=== PATIENT | male | born 1955 | race African-American/Black ===

== ENCOUNTER 2018-03-19 04:15 | Inpatient (IN) ==
[2018-03-19] MEDS ORDERED: ALBUTEROL/IPRATROPIUM 3 ML NEB RESP TX STA (04:52)
[2018-03-19] MEDS ORDERED: methylPREDNISolone SOD SUC 125 MG/2 ML VIAL IV STA (04:52)
[2018-03-19] MEDS: ALBUTEROL 2.5 MG/3 ML NEB RESP TX SCH ×3 (05:08→05:48)
[2018-03-19 05:22] LABS: Basophils # 0.1 10*3/uL (0.0-0.2); Basophils % 0.8 % (0.0-0.8); Eosinophils # 0.8 10*3/uL (0.0-0.87); Hematocrit 38.7 VOL% (42.0-52.0); Hemoglobin 12.3 GM/DL (14.0-18.0); Immature Granulocytes % 0.5 %; Immature Granulocytes Absolute 0.04 #; Lymphocytes # 1.1 10*3/uL (1.4-4.0); Lymphocytes % 13.9 % (21.2-54.2); Mean Corpuscular HGB Conc 31.8 GM/DL (32-36); Mean Corpuscular Hemoglobin 29 PG (27-34); Mean Corpuscular Volume 92.4 FL (87-102); Mean Platelet Volume 9.6 FL (9.6-12.0); Monocytes % 12.5 % (1.7-12.7); Neutrophils # 4.7 10*3/uL (1.4-7.4); Neutrophils % 61.3 % (38.7-73.9); Platelet Count 225 T/CUMM (130-400); Red Blood Count 4.19 MC/CUMM (3.8-5.5); Red Cell Distribution Width 16.3 % (9.3-17.3); White Blood Count 7.7 T/CUMM (4-12)
[2018-03-19 05:41] LABS: Albumin 3.1 G/DL (3.4-5.0); Bilirubin,Total 0.4 MG/DL (0.2-1.0); Calcium 9.3 MG/DL (8.5-10.1); Potassium 4.6 MMOL/L (3.5-5.1); Total Protein 9.2 G/DL (6.4-8.3)
[2018-03-19 05:43] LABS: Troponin I Only 0.083 NG/ML (0.00-0.045)
[2018-03-19 06:09] LABS: Band Neutrophils 1 % (0-10); Eosinophils 10 % (0-10); Lymphocytes 8 % (20-55); Platelet Estimate Normal; Segmented Neutrophils 69 % (50-85); Total Cells Counted 100
[2018-03-19] MEDS ORDERED: ONDANSETRON 4 MG/2 ML VIAL IV PRN (06:31)
[2018-03-19] MEDS ORDERED: amLODIPine 5 MG TABLET PO STA (06:38)
[2018-03-19 07:38] LABS: VLDL CHOLESTEROL 15.8 MG/DL
[2018-03-19 07:39] LABS: Risk Ratio 3.84
[2018-03-19] MEDS: ENOXAPARIN 40 MG/0.4 ML SYRINGE SUBCUT SCH (07:49)
[2018-03-19 08:23] LABS: Hepatitis C Virus Ab Quant 0.31 Index; Hepatitis C Virus Ab Result Negative (Negative)
[2018-03-19] MEDS: predniSONE 20 MG TABLET PO SCH (10:16)
[2018-03-19] MEDS: DOXYCYCLINE HYCLATE 100 MG CAPSULE PO SCH ×2 (10:16→22:13)
[2018-03-19] MEDS: PANTOPRAZOLE 40 MG TABLET PO SCH (10:17)
[2018-03-19] MEDS: guaiFENesin/DM ER 600-30 MG TABLET PO PRN (22:13)
[2018-03-19] MEDS: cloNIDine 0.1 MG TABLET PO SCH ×2 (22:29→22:30)
[2018-03-20 05:20] LABS: Basophils # 0.1 10*3/uL (0.0-0.2); Basophils % 0.4 % (0.0-0.8); Eosinophils # 0.1 10*3/uL (0.0-0.87); Eosinophils % 0.4 % (0.00-10.9); Hematocrit 36.5 VOL% (42.0-52.0); Hemoglobin 11.8 GM/DL (14.0-18.0); Immature Granulocytes % 0.6 %; Immature Granulocytes Absolute 0.08 #; Lymphocytes # 2.4 10*3/uL (1.4-4.0); Lymphocytes % 17.1 % (21.2-54.2); Mean Corpuscular HGB Conc 32.3 GM/DL (32-36); Mean Corpuscular Hemoglobin 30 PG (27-34); Mean Corpuscular Volume 91.5 FL (87-102); Mean Platelet Volume 9.2 FL (9.6-12.0); Monocytes # 1.7 10*3/uL (0.11-0.8); Monocytes % 11.7 % (1.7-12.7); Neutrophils # 9.9 10*3/uL (1.4-7.4); Neutrophils % 69.8 % (38.7-73.9); Platelet Count 223 T/CUMM (130-400); Red Blood Count 3.99 MC/CUMM (3.8-5.5); Red Cell Distribution Width 16.3 % (9.3-17.3); White Blood Count 14.1 T/CUMM (4-12)
[2018-03-20 05:34] LABS: Calcium 9.4 MG/DL (8.5-10.1); Osmolality,Calculated 277.4 MOS/KG (273-304); Potassium 4.2 MMOL/L (3.5-5.1)
[2018-03-20 05:39] LABS: Troponin I Only 0.039 NG/ML (0.00-0.045)
[2018-03-20 05:41] LABS: Eosinophils 1 % (0-10); Hypochromasia 1+; Lymphocytes 17 % (20-55); Ovalocytes Slight; Platelet Estimate Adequate; Segmented Neutrophils 74 % (50-85); Total Cells Counted 100
[2018-03-20] MEDS: ENOXAPARIN 40 MG/0.4 ML SYRINGE SUBCUT SCH (06:10)
[2018-03-20] MEDS: predniSONE 20 MG TABLET PO SCH (08:11)
[2018-03-20] MEDS: DOXYCYCLINE HYCLATE 100 MG CAPSULE PO SCH ×2 (08:11→20:20)
[2018-03-20] MEDS: PANTOPRAZOLE 40 MG TABLET PO SCH (08:11)
[2018-03-20] MEDS ORDERED: PROCHLORPERAZINE 10 MG TABLET PO PRN (10:35)
[2018-03-20] MEDS: amLODIPine 5 MG TABLET PO SCH ×2 (16:00→20:20)
[2018-03-20] MEDS: GABAPENTIN 100 MG CAPSULE PO SCH (18:12)
[2018-03-20] MEDS ORDERED: RANITIDINE 150 MG TABLET PO SCH (21:00)
[2018-03-20] MEDS: DOCUSATE SODIUM 100 MG CAPSULE PO SCH (22:34)
[2018-03-21] MEDS: ENOXAPARIN 40 MG/0.4 ML SYRINGE SUBCUT SCH (06:37)
[2018-03-21] MEDS ORDERED: LISINOPRIL 10 MG TABLET PO SCH ×2 (09:00→21:00)
[2018-03-21] MEDS: DOXYCYCLINE HYCLATE 100 MG CAPSULE PO SCH ×2 (09:36→21:24)
[2018-03-21] MEDS: PANTOPRAZOLE 40 MG TABLET PO SCH (09:36)
[2018-03-21] MEDS ORDERED: ALBUTEROL/IPRATROPIUM 3 ML NEB RESP TX STA (09:37)
[2018-03-21] MEDS: DOCUSATE SODIUM 100 MG CAPSULE PO SCH ×2 (09:37→21:24)
[2018-03-21] MEDS: amLODIPine 5 MG TABLET PO SCH ×2 (09:37→21:24)
[2018-03-21] MEDS: ALBUTEROL/IPRATROPIUM 3 ML NEB RESP TX SCH ×2 (14:27→19:30)
[2018-03-21] MEDS: hydroCHLOROthiazide 12.5 MG CAPSULE PO SCH (18:54)
[2018-03-21] MEDS: THEOPHYLLINE ER (24 HR) 300 MG CAPSULE PO SCH (19:14)
[2018-03-21] MEDS: GABAPENTIN 100 MG CAPSULE PO SCH (19:17)
[2018-03-21] MEDS: ALBUTEROL 2 MG TABLET PO SCH (21:24)
[2018-03-21] MEDS: LISINOPRIL 10 MG TABLET PO SCH (21:24)
[2018-03-21] MEDS: MONTELUKAST 10 MG TABLET PO SCH (21:24)
[2018-03-22] MEDS: ALBUTEROL/IPRATROPIUM 3 ML NEB RESP TX SCH ×2 (00:35→07:00)
[2018-03-22] MEDS: ALBUTEROL 2 MG TABLET PO SCH (06:33)
[2018-03-22] MEDS: ENOXAPARIN 40 MG/0.4 ML SYRINGE SUBCUT SCH (06:33)
[2018-03-22] MEDS: MONTELUKAST 10 MG TABLET PO SCH (09:56)
[2018-03-22] MEDS: guaiFENesin/DM ER 600-30 MG TABLET PO PRN (09:56)
[2018-03-22] MEDS: PANTOPRAZOLE 40 MG TABLET PO SCH (09:56)
[2018-03-22] MEDS: THEOPHYLLINE ER (24 HR) 300 MG CAPSULE PO SCH (09:56)
[2018-03-22] MEDS: hydroCHLOROthiazide 12.5 MG CAPSULE PO SCH (09:56)
[2018-03-22] MEDS: LISINOPRIL 10 MG TABLET PO SCH (09:57)
[2018-03-22] MEDS: DOCUSATE SODIUM 100 MG CAPSULE PO SCH (09:57)
[2018-03-22] MEDS: amLODIPine 5 MG TABLET PO SCH (09:57)
[2018-03-22] MEDS: DOXYCYCLINE HYCLATE 100 MG CAPSULE PO SCH (09:57)
[2018-03-22 12:22] VITALS: BP 115/90
[2018-03-24] MEDS ORDERED: THEOPHYLLINE ER (24 HR) 200 MG CAPSULE PO SCH (09:00)
== END 2018-03-22 12:33 | disposition home or self-care (01) | DRG 136 ==
LOC: SUATTDRO → N.ED 04:15 → N.EDINP 06:08 → N.4E 08:45
PROVIDERS: ADMIT Internal Medicine; ATTEND Internal Medicine

== ENCOUNTER 2018-06-30 07:29 | Inpatient (IN) ==
[2018-06-30] MEDS ORDERED: methylPREDNISolone SOD SUC 125 MG/2 ML VIAL IV STA (08:22)
[2018-06-30] MEDS ORDERED: ALBUTEROL/IPRATROPIUM 3 ML NEB RESP TX STA (08:22)
[2018-06-30] MEDS ORDERED: cefTRIAXone 1,000 MG in SODIUM CHLORIDE 0.9% 100 ML IV STA (08:22)
[2018-06-30 09:38] LABS: Albumin 2.9 G/DL (3.4-5.0); Bilirubin,Total 1.2 MG/DL (0.2-1.0); Calcium 9.1 MG/DL (8.5-10.1); Osmolality,Calculated 262.5 MOS/KG (273-304); Potassium 3.3 MMOL/L (3.5-5.1); Total Protein 8.6 G/DL (6.4-8.3)
[2018-06-30 11:54] LABS: Basophils % 0.2 % (0.0-0.8); Hematocrit 39.7 VOL% (42.0-52.0); Hemoglobin 13.1 GM/DL (14.0-18.0); Immature Granulocytes % 1.3 %; Immature Granulocytes Absolute 0.25 #; Lymphocytes # 0.6 10*3/uL (1.4-4.0); Lymphocytes % 3.3 % (21.2-54.2); Mean Corpuscular Hemoglobin 28 PG (27-34); Mean Corpuscular Volume 83.9 FL (87-102); Mean Platelet Volume 9.2 FL (9.6-12.0); Monocytes # 0.4 10*3/uL (0.11-0.8); Monocytes % 2.1 % (1.7-12.7); Neutrophils # 17.4 10*3/uL (1.4-7.4); Neutrophils % 93.1 % (38.7-73.9); Platelet Count 207 T/CUMM (130-400); Red Blood Count 4.73 MC/CUMM (3.8-5.5); Red Cell Distribution Width 17.6 % (9.3-17.3); White Blood Count 18.7 T/CUMM (4-12)
[2018-06-30 12:31] LABS: Band Neutrophils 2 % (0-10); Hypochromasia 1+; Lymphocytes 4 % (20-55); Microcytosis 1+; Platelet Estimate Normal; Segmented Neutrophils 88 % (50-85); Total Cells Counted 100
[2018-06-30] MEDS: ALBUTEROL/IPRATROPIUM 3 ML NEB RESP TX SCH (19:03)
[2018-06-30] MEDS: MONTELUKAST 10 MG TABLET PO SCH (20:52)
[2018-06-30] MEDS: guaiFENesin/DM ER 600-30 MG TABLET PO SCH (20:52)
[2018-06-30] MEDS ORDERED: methylPREDNISolone SOD SUC 40 MG/1 ML VIAL IV SCH (21:00)
[2018-07-01] MEDS: ALBUTEROL/IPRATROPIUM 3 ML NEB RESP TX SCH ×4 (00:50→18:56)
[2018-07-01 02:55] LABS: Basophils % 0.2 % (0.0-0.8); Hematocrit 40.8 VOL% (42.0-52.0); Hemoglobin 13.4 GM/DL (14.0-18.0); Immature Granulocytes % 0.8 %; Immature Granulocytes Absolute 0.19 #; Lymphocytes # 1.2 10*3/uL (1.4-4.0); Lymphocytes % 4.7 % (21.2-54.2); Mean Corpuscular HGB Conc 32.8 GM/DL (32-36); Mean Corpuscular Hemoglobin 27 PG (27-34); Mean Corpuscular Volume 82.9 FL (87-102); Mean Platelet Volume 9.9 FL (9.6-12.0); Monocytes # 1.2 10*3/uL (0.11-0.8); Monocytes % 4.8 % (1.7-12.7); Neutrophils # 22.6 10*3/uL (1.4-7.4); Neutrophils % 89.5 % (38.7-73.9); Platelet Count 237 T/CUMM (130-400); Red Blood Count 4.92 MC/CUMM (3.8-5.5); Red Cell Distribution Width 17.7 % (9.3-17.3); White Blood Count 25.2 T/CUMM (4-12)
[2018-07-01 03:14] LABS: Calcium 9.1 MG/DL (8.5-10.1); Osmolality,Calculated 269.4 MOS/KG (273-304); Potassium 3.7 MMOL/L (3.5-5.1)
[2018-07-01 03:29] LABS: Band Neutrophils 16 % (0-10); Total Cells Counted 100
[2018-07-01 03:30] LABS: Lymphocytes 3 % (20-55); Metamyelocytes 3 %; Platelet Estimate Normal; Segmented Neutrophils 74 % (50-85)
[2018-07-01] MEDS: ACETAMINOPHEN 325 MG TABLET PO PRN ×2 (06:00→20:33)
[2018-07-01] MEDS ORDERED: ALBUTEROL/IPRATROPIUM 3 ML NEB RESP TX PRN (07:20)
[2018-07-01] MEDS ORDERED: guaiFENesin/DM ER 600-30 MG TABLET PO PRN (07:20)
[2018-07-01] MEDS ORDERED: ALBUTEROL 2.5 MG/3 ML NEB RESP TX PRN (07:20)
[2018-07-01] MEDS: PANTOPRAZOLE 40 MG TABLET PO SCH (08:49)
[2018-07-01] MEDS: hydroCHLOROthiazide 12.5 MG CAPSULE PO SCH (08:49)
[2018-07-01] MEDS: LISINOPRIL 10 MG TABLET PO SCH ×2 (08:49→20:32)
[2018-07-01] MEDS: FAMOTIDINE 20 MG TABLET PO SCH (08:49)
[2018-07-01] MEDS: guaiFENesin/DM ER 600-30 MG TABLET PO SCH ×2 (08:49→20:32)
[2018-07-01] MEDS: MEROPENEM 1,000 MG in SODIUM CHLORIDE 0.9% 100 ML IV SCH ×2 (08:50→15:32)
[2018-07-01] MEDS ORDERED: cefTRIAXone 2,000 MG in SYRINGE 1 EACH IV SCH (09:00)
[2018-07-01] MEDS ORDERED: cefTRIAXone 1,000 MG in SYRINGE 1 EACH IV SCH (09:00)
[2018-07-01] MEDS: MELOXICAM 7.5 MG TABLET PO SCH (20:32)
[2018-07-01] MEDS: MONTELUKAST 10 MG TABLET PO SCH (20:33)
[2018-07-01] MEDS: GABAPENTIN 100 MG CAPSULE PO SCH (20:33)
[2018-07-02] MEDS: MEROPENEM 1,000 MG in SODIUM CHLORIDE 0.9% 100 ML IV SCH ×3 (00:10→18:41)
[2018-07-02] MEDS: ALBUTEROL/IPRATROPIUM 3 ML NEB RESP TX SCH ×3 (00:30→18:45)
[2018-07-02 05:12] LABS: Basophils # 0.1 10*3/uL (0.0-0.2); Basophils % 0.4 % (0.0-0.8); Hematocrit 39.7 VOL% (42.0-52.0); Hemoglobin 12.3 GM/DL (14.0-18.0); Immature Granulocytes % 5.3 %; Immature Granulocytes Absolute 1.44 #; Lymphocytes # 1.2 10*3/uL (1.4-4.0); Lymphocytes % 4.6 % (21.2-54.2); Mean Corpuscular Hemoglobin 27 PG (27-34); Mean Corpuscular Volume 86.9 FL (87-102); Mean Platelet Volume 10.9 FL (9.6-12.0); Monocytes # 1.6 10*3/uL (0.11-0.8); Monocytes % 5.8 % (1.7-12.7); Neutrophils # 22.7 10*3/uL (1.4-7.4); Neutrophils % 83.9 % (38.7-73.9); Platelet Count 210 T/CUMM (130-400); Red Blood Count 4.57 MC/CUMM (3.8-5.5); Red Cell Distribution Width 18.4 % (9.3-17.3); White Blood Count 27.1 T/CUMM (4-12)
[2018-07-02 05:39] LABS: Albumin 2.2 G/DL (3.4-5.0); Bilirubin,Total 0.8 MG/DL (0.2-1.0); Calcium 8.8 MG/DL (8.5-10.1); Osmolality,Calculated 268.4 MOS/KG (273-304); Potassium 3.4 MMOL/L (3.5-5.1); Total Protein 7.7 G/DL (6.4-8.3)
[2018-07-02 06:10] LABS: Band Neutrophils 1 % (0-10); Hypochromasia 1+; Lymphocytes 4 % (20-55); Platelet Estimate Adequate; Segmented Neutrophils 89 % (50-85); Total Cells Counted 100
[2018-07-02 06:11] LABS: Microcytosis 1+
[2018-07-02] MEDS: guaiFENesin/DM ER 600-30 MG TABLET PO SCH ×2 (09:03→21:23)
[2018-07-02] MEDS: LISINOPRIL 10 MG TABLET PO SCH ×2 (09:03→21:58)
[2018-07-02] MEDS: FAMOTIDINE 20 MG TABLET PO SCH (09:03)
[2018-07-02] MEDS: hydroCHLOROthiazide 12.5 MG CAPSULE PO SCH (09:03)
[2018-07-02] MEDS: PANTOPRAZOLE 40 MG TABLET PO SCH (09:03)
[2018-07-02] MEDS: VANCOMYCIN INJ 1,250 MG in SODIUM CHLORIDE 0.9% 250 ML IV SCH (12:51)
[2018-07-02] MEDS: GABAPENTIN 100 MG CAPSULE PO SCH (18:41)
[2018-07-02] MEDS: MONTELUKAST 10 MG TABLET PO SCH (21:23)
[2018-07-02] MEDS: MELOXICAM 7.5 MG TABLET PO SCH (21:23)
[2018-07-03] MEDS: ALBUTEROL/IPRATROPIUM 3 ML NEB RESP TX SCH ×4 (01:25→20:28)
[2018-07-03] MEDS: VANCOMYCIN INJ 1,250 MG in SODIUM CHLORIDE 0.9% 250 ML IV SCH (01:33)
[2018-07-03 05:04] LABS: Basophils # 0.1 10*3/uL (0.0-0.2); Basophils % 0.3 % (0.0-0.8); Eosinophils # 0.1 10*3/uL (0.0-0.87); Eosinophils % 0.3 % (0.00-10.9); Hematocrit 35.8 VOL% (42.0-52.0); Hemoglobin 11.5 GM/DL (14.0-18.0); Immature Granulocytes % 0.9 %; Lymphocytes # 1.3 10*3/uL (1.4-4.0); Lymphocytes % 5.5 % (21.2-54.2); Mean Corpuscular HGB Conc 32.1 GM/DL (32-36); Mean Corpuscular Hemoglobin 27 PG (27-34); Mean Corpuscular Volume 83.3 FL (87-102); Mean Platelet Volume 9.7 FL (9.6-12.0); Monocytes # 1.3 10*3/uL (0.11-0.8); Monocytes % 5.6 % (1.7-12.7); Neutrophils % 87.4 % (38.7-73.9); Platelet Count 241 T/CUMM (130-400); Red Cell Distribution Width 17.9 % (9.3-17.3); White Blood Count 22.9 T/CUMM (4-12)
[2018-07-03] MEDS: MEROPENEM 1,000 MG in SODIUM CHLORIDE 0.9% 100 ML IV SCH (05:31)
[2018-07-03 05:36] LABS: Albumin 2.2 G/DL (3.4-5.0); Bilirubin,Total 0.9 MG/DL (0.2-1.0); Calcium 8.6 MG/DL (8.5-10.1); Osmolality,Calculated 264.5 MOS/KG (273-304); Potassium 3.2 MMOL/L (3.5-5.1); Total Protein 7.3 G/DL (6.4-8.3)
[2018-07-03 05:46] LABS: Band Neutrophils 6 % (0-10); Eosinophils 1 % (0-10); Lymphocytes 5 % (20-55); Platelet Estimate Normal; Segmented Neutrophils 84 % (50-85); Total Cells Counted 100
[2018-07-03 05:47] LABS: Hypochromasia Slight; Ovalocytes 1+
[2018-07-03] MEDS: LISINOPRIL 10 MG TABLET PO SCH ×2 (08:59→20:39)
[2018-07-03] MEDS: FAMOTIDINE 20 MG TABLET PO SCH (08:59)
[2018-07-03] MEDS: guaiFENesin/DM ER 600-30 MG TABLET PO SCH ×2 (08:59→20:39)
[2018-07-03] MEDS: PANTOPRAZOLE 40 MG TABLET PO SCH (09:00)
[2018-07-03] MEDS: hydroCHLOROthiazide 12.5 MG CAPSULE PO SCH (09:00)
[2018-07-03] MEDS: GABAPENTIN 100 MG CAPSULE PO SCH (18:45)
[2018-07-03] MEDS: MELOXICAM 7.5 MG TABLET PO SCH (20:40)
[2018-07-03] MEDS: MONTELUKAST 10 MG TABLET PO SCH (20:40)
[2018-07-04] MEDS: ALBUTEROL/IPRATROPIUM 3 ML NEB RESP TX SCH ×2 (01:53→06:40)
[2018-07-04 04:59] LABS: Basophils # 0.1 10*3/uL (0.0-0.2); Basophils % 0.5 % (0.0-0.8); Eosinophils # 0.2 10*3/uL (0.0-0.87); Eosinophils % 1.4 % (0.00-10.9); Hematocrit 35.1 VOL% (42.0-52.0); Hemoglobin 11.5 GM/DL (14.0-18.0); Immature Granulocytes % 1.4 %; Immature Granulocytes Absolute 0.19 #; Lymphocytes # 1.4 10*3/uL (1.4-4.0); Mean Corpuscular HGB Conc 32.8 GM/DL (32-36); Mean Corpuscular Hemoglobin 27 PG (27-34); Mean Corpuscular Volume 83.6 FL (87-102); Mean Platelet Volume 10.7 FL (9.6-12.0); Monocytes # 0.9 10*3/uL (0.11-0.8); Monocytes % 6.7 % (1.7-12.7); Neutrophils # 10.4 10*3/uL (1.4-7.4); Platelet Count 192 T/CUMM (130-400); Red Cell Distribution Width 17.8 % (9.3-17.3); White Blood Count 13.1 T/CUMM (4-12)
[2018-07-04 05:17] LABS: Bilirubin,Total 0.8 MG/DL (0.2-1.0); Calcium 8.5 MG/DL (8.5-10.1); Osmolality,Calculated 266.2 MOS/KG (273-304); Total Protein 7.2 G/DL (6.4-8.3)
[2018-07-04 07:06] LABS: Band Neutrophils 16 % (0-10); Eosinophils 2 % (0-10); Lymphocytes 7 % (20-55); Platelet Estimate Normal; Segmented Neutrophils 66 % (50-85); Total Cells Counted 100
[2018-07-04 07:07] LABS: Anisocytosis Slight
[2018-07-04] MEDS ORDERED: POTASSIUM CHLORIDE 20 MEQ TABLET PO ONE ×2 (07:41→14:00)
[2018-07-04] MEDS ORDERED: LEVOFLOXACIN 750 MG TABLET PO SCH (09:00)
[2018-07-04] MEDS: hydroCHLOROthiazide 12.5 MG CAPSULE PO SCH (09:32)
[2018-07-04] MEDS: FAMOTIDINE 20 MG TABLET PO SCH (09:32)
[2018-07-04] MEDS: PANTOPRAZOLE 40 MG TABLET PO SCH (09:33)
[2018-07-04] MEDS: guaiFENesin/DM ER 600-30 MG TABLET PO SCH (09:33)
[2018-07-04] MEDS: LISINOPRIL 10 MG TABLET PO SCH (09:33)
[2018-07-04 11:47] VITALS: BP 112/82
[2018-07-05 13:51] LABS: Mitochondrial Antibody (M2) <0.1 U
== END 2018-07-04 14:04 | disposition home or self-care (01) | DRG 139 ==
LOC: N.ED 07:29 → N.EDINP 13:42 → SUATTDRO 13:42 → N.5E 14:10 → N.4E 14:20
PROVIDERS: ADMIT Hospitalist; ATTEND Internal Medicine

== ENCOUNTER 2022-03-29 10:33 | Inpatient (IN) ==
[2022-03-29 11:15] LABS: Basophils % 0.4 % (0.0-0.8); Eosinophils % 0.4 % (0.00-10.9); Hematocrit 44.9 VOL% (42.0-52.0); Hemoglobin 14.7 GM/DL (14.0-18.0); Immature Granulocytes % 0.4 %; Immature Granulocytes Absolute 0.03 #; Lymphocytes # 1.9 10*3/uL (1.4-4.0); Lymphocytes % 24.1 % (21.2-54.2); Mean Corpuscular HGB Conc 32.7 GM/DL (32-36); Mean Corpuscular Volume 94.3 FL (87-102); Mean Platelet Volume 9.3 FL (9.6-12.0); Monocytes # 0.6 10*3/uL (0.11-0.8); Monocytes % 7.7 % (1.7-12.7); Platelet Count 219 T/CUMM (130-400); Red Blood Count 4.76 MC/CUMM (3.8-5.5); Red Cell Distribution Width 15.5 % (9.3-17.3); White Blood Count 7.8 T/CUMM (4-12)
[2022-03-29] MEDS ORDERED: DEXAMETHASONE 10 MG/1 ML VIAL ONE (11:31)
[2022-03-29 11:35] LABS: Bilirubin,Total 0.9 MG/DL (0.20-1.00); Calcium 9.4 MG/DL (8.5-10.1); Osmolality,Calculated 274.5 MOS/KG (273-304); Potassium 3.1 MMOL/L (3.5-5.1); Total Protein 7.9 G/DL (6.4-8.2)
[2022-03-29] MEDS ORDERED: DEXAMETHASONE INJ 20 MG in SODIUM CHLORIDE 0.9% 50 ML IV ONE (11:39)
[2022-03-29] MEDS ORDERED: POTASSIUM CHLORIDE 20 MEQ TABLET PO ONE (12:08)
[2022-03-29] MEDS ORDERED: ONDANSETRON 4 MG/2 ML VIAL IV PRN (13:00)
[2022-03-29] MEDS ORDERED: GLUCAGON 1 MG VIAL IM PRN (13:00)
[2022-03-29] MEDS ORDERED: DEXTROSE 10% 250 ML BAG IV PRN (13:08)
[2022-03-29] MEDS ORDERED: NON-FORMULARY MEDICATION (Albuterol Sulfate [Proair Hfa] 90 MCG/PUFF HFA aerosol inhaler) INH PRN (14:04)
[2022-03-29] MEDS ORDERED: ALBUTEROL 1.25 MG/3 ML NEB RESP TX PRN (14:04)
[2022-03-29] MEDS ORDERED: PHENYLEPHRINE 0.5% NASAL SPRAY 15 ML BOTTLE BOTH NARES PRN (14:18)
[2022-03-29] MEDS: GABAPENTIN 100 MG CAPSULE PO SCH ×2 (17:09→20:33)
[2022-03-29] MEDS: DEXAMETHASONE INJ 40 MG in SODIUM CHLORIDE 0.9% 50 ML IV SCH (17:46)
[2022-03-29] MEDS: ENOXAPARIN 30 MG/0.3 ML SYRINGE SUBCUT SCH (20:32)
[2022-03-29] MEDS: MELOXICAM 7.5 MG TABLET PO SCH (20:33)
[2022-03-29] MEDS: BUDESONIDE/FORMOTEROL 80-4.5 INHALER 6.9 GM INH SCH (20:33)
[2022-03-29] MEDS ORDERED: MAGNESIUM CITRATE 300 ML BOTTLE PO PRN (21:53)
[2022-03-30 05:54] LABS: Basophils % 0.1 % (0.0-0.8); Hematocrit 43.1 VOL% (42.0-52.0); Immature Granulocytes % 0.4 %; Immature Granulocytes Absolute 0.03 #; Lymphocytes # 1.1 10*3/uL (1.4-4.0); Lymphocytes % 14.3 % (21.2-54.2); Mean Corpuscular HGB Conc 32.5 GM/DL (32-36); Mean Corpuscular Volume 94.9 FL (87-102); Mean Platelet Volume 9.3 FL (9.6-12.0); Monocytes # 0.2 10*3/uL (0.11-0.8); Monocytes % 2.2 % (1.7-12.7); Platelet Count 201 T/CUMM (130-400); Red Blood Count 4.54 MC/CUMM (3.8-5.5); Red Cell Distribution Width 15.1 % (9.3-17.3); White Blood Count 7.9 T/CUMM (4-12)
[2022-03-30 06:13] LABS: Albumin 2.6 G/DL (3.4-5.0); Bilirubin,Total 0.6 MG/DL (0.20-1.00); Calcium 8.7 MG/DL (8.5-10.1); Osmolality,Calculated 277.5 MOS/KG (273-304); Potassium 3.8 MMOL/L (3.5-5.1); Total Protein 7.7 G/DL (6.4-8.2)
[2022-03-30] MEDS: IPRATROPIUM 500 MCG/2.5 ML NEB RESP TX SCH ×4 (07:19→19:15)
[2022-03-30] MEDS: DEXAMETHASONE INJ 40 MG in SODIUM CHLORIDE 0.9% 50 ML IV SCH (10:15)
[2022-03-30] MEDS: BUDESONIDE/FORMOTEROL 80-4.5 INHALER 6.9 GM INH SCH ×2 (10:15→21:42)
[2022-03-30] MEDS: GABAPENTIN 100 MG CAPSULE PO SCH ×3 (10:18→21:42)
[2022-03-30] MEDS: amLODIPine 10 MG TABLET PO SCH (10:19)
[2022-03-30] MEDS: MULTIVITAMIN (CENTRUM) TABLET PO SCH (10:19)
[2022-03-30] MEDS: ENOXAPARIN 30 MG/0.3 ML SYRINGE SUBCUT SCH (21:42)
[2022-03-30] MEDS: MELOXICAM 7.5 MG TABLET PO SCH (21:42)
[2022-03-31] MEDS: IPRATROPIUM 500 MCG/2.5 ML NEB RESP TX SCH ×4 (07:28→19:26)
[2022-03-31] MEDS: PANTOPRAZOLE 40 MG TABLET PO SCH (09:45)
[2022-03-31] MEDS: GABAPENTIN 100 MG CAPSULE PO SCH ×3 (09:45→21:33)
[2022-03-31] MEDS: MULTIVITAMIN (CENTRUM) TABLET PO SCH (09:45)
[2022-03-31] MEDS: amLODIPine 10 MG TABLET PO SCH (09:45)
[2022-03-31] MEDS: BUDESONIDE/FORMOTEROL 80-4.5 INHALER 6.9 GM INH SCH ×2 (09:46→21:33)
[2022-03-31] MEDS: DEXAMETHASONE INJ 40 MG in SODIUM CHLORIDE 0.9% 50 ML IV SCH (09:46)
[2022-03-31] MEDS: MELOXICAM 7.5 MG TABLET PO SCH (21:32)
[2022-03-31] MEDS: ENOXAPARIN 30 MG/0.3 ML SYRINGE SUBCUT SCH (21:33)
[2022-04-01 05:59] LABS: Basophils % 0.1 % (0.0-0.8); Hemoglobin 14.3 GM/DL (14.0-18.0); Immature Granulocytes % 0.9 %; Immature Granulocytes Absolute 0.12 #; Lymphocytes # 0.8 10*3/uL (1.4-4.0); Lymphocytes % 6.6 % (21.2-54.2); Mean Corpuscular HGB Conc 32.5 GM/DL (32-36); Mean Corpuscular Volume 95.4 FL (87-102); Mean Platelet Volume 9.2 FL (9.6-12.0); Monocytes # 0.8 10*3/uL (0.11-0.8); Monocytes % 5.9 % (1.7-12.7); Neutrophils % 86.5 % (38.7-73.9); Platelet Count 219 T/CUMM (130-400); Red Blood Count 4.61 MC/CUMM (3.8-5.5); Red Cell Distribution Width 15.7 % (9.3-17.3); White Blood Count 12.8 T/CUMM (4-12)
[2022-04-01 06:04] LABS: Calcium 8.3 MG/DL (8.5-10.1); Osmolality,Calculated 282.3 MOS/KG (273-304); Potassium 3.4 MMOL/L (3.5-5.1)
[2022-04-01] MEDS: IPRATROPIUM 500 MCG/2.5 ML NEB RESP TX SCH ×4 (07:21→19:55)
[2022-04-01] MEDS: GABAPENTIN 100 MG CAPSULE PO SCH ×3 (10:11→21:05)
[2022-04-01] MEDS: MULTIVITAMIN (CENTRUM) TABLET PO SCH (10:11)
[2022-04-01] MEDS: DEXAMETHASONE INJ 40 MG in SODIUM CHLORIDE 0.9% 50 ML IV SCH (10:11)
[2022-04-01] MEDS: PANTOPRAZOLE 40 MG TABLET PO SCH (10:12)
[2022-04-01] MEDS: amLODIPine 10 MG TABLET PO SCH (10:12)
[2022-04-01] MEDS: BUDESONIDE/FORMOTEROL 80-4.5 INHALER 6.9 GM INH SCH ×2 (10:12→21:05)
[2022-04-01] MEDS ORDERED: POTASSIUM CHLORIDE 20 MEQ TABLET PO ONE (11:09)
[2022-04-01] MEDS: MELOXICAM 7.5 MG TABLET PO SCH (21:05)
[2022-04-01] MEDS: ENOXAPARIN 30 MG/0.3 ML SYRINGE SUBCUT SCH (21:05)
[2022-04-02 07:48] LABS: Basophils % 0.1 % (0.0-0.8); Hematocrit 43.6 VOL% (42.0-52.0); Hemoglobin 14.1 GM/DL (14.0-18.0); Immature Granulocytes Absolute 0.14 #; Lymphocytes # 1.6 10*3/uL (1.4-4.0); Lymphocytes % 11.6 % (21.2-54.2); Mean Corpuscular HGB Conc 32.3 GM/DL (32-36); Mean Corpuscular Volume 96.2 FL (87-102); Mean Platelet Volume 9.2 FL (9.6-12.0); Monocytes # 1.2 10*3/uL (0.11-0.8); Monocytes % 8.9 % (1.7-12.7); Neutrophils % 78.4 % (38.7-73.9); Platelet Count 207 T/CUMM (130-400); Red Blood Count 4.53 MC/CUMM (3.8-5.5); Red Cell Distribution Width 15.9 % (9.3-17.3); White Blood Count 13.8 T/CUMM (4-12)
[2022-04-02] MEDS: IPRATROPIUM 500 MCG/2.5 ML NEB RESP TX SCH ×4 (08:11→19:17)
[2022-04-02 08:13] LABS: Calcium 8.3 MG/DL (8.5-10.1); Osmolality,Calculated 277.4 MOS/KG (273-304); Potassium 4.6 MMOL/L (3.5-5.1)
[2022-04-02] MEDS: PANTOPRAZOLE 40 MG TABLET PO SCH (09:26)
[2022-04-02] MEDS: MULTIVITAMIN (CENTRUM) TABLET PO SCH (09:26)
[2022-04-02] MEDS: amLODIPine 10 MG TABLET PO SCH (09:26)
[2022-04-02] MEDS: DEXAMETHASONE INJ 40 MG in SODIUM CHLORIDE 0.9% 50 ML IV SCH (09:26)
[2022-04-02] MEDS: GABAPENTIN 100 MG CAPSULE PO SCH ×3 (09:26→21:32)
[2022-04-02] MEDS: BUDESONIDE/FORMOTEROL 80-4.5 INHALER 6.9 GM INH SCH ×2 (09:27→21:34)
[2022-04-02] MEDS ORDERED: POLYETHYLENE GLYCOL POWDER 17 GM PACK PO PRN (09:52)
[2022-04-02] MEDS: DOCUSATE SODIUM 100 MG CAPSULE PO SCH ×2 (10:09→21:32)
[2022-04-02] MEDS: MELOXICAM 7.5 MG TABLET PO SCH (21:32)
[2022-04-02] MEDS: ENOXAPARIN 30 MG/0.3 ML SYRINGE SUBCUT SCH (21:32)
[2022-04-03] MEDS: amLODIPine 10 MG TABLET PO SCH ×2 (03:47→09:45)
[2022-04-03] MEDS: IPRATROPIUM 500 MCG/2.5 ML NEB RESP TX SCH ×4 (07:00→19:20)
[2022-04-03 07:43] LABS: Basophils % 0.2 % (0.0-0.8); Hemoglobin 14.4 GM/DL (14.0-18.0); Immature Granulocytes % 1.3 %; Immature Granulocytes Absolute 0.17 #; Lymphocytes # 1.4 10*3/uL (1.4-4.0); Mean Corpuscular Volume 95.9 FL (87-102); Monocytes # 1.1 10*3/uL (0.11-0.8); Monocytes % 8.5 % (1.7-12.7); Platelet Count 217 T/CUMM (130-400); Red Blood Count 4.69 MC/CUMM (3.8-5.5); Red Cell Distribution Width 15.8 % (9.3-17.3); White Blood Count 12.8 T/CUMM (4-12)
[2022-04-03 08:04] LABS: Calcium 8.4 MG/DL (8.5-10.1); Osmolality,Calculated 274.7 MOS/KG (273-304); Potassium 4.6 MMOL/L (3.5-5.1)
[2022-04-03] MEDS: MULTIVITAMIN (CENTRUM) TABLET PO SCH (09:44)
[2022-04-03] MEDS: DOCUSATE SODIUM 100 MG CAPSULE PO SCH ×2 (09:44→21:04)
[2022-04-03] MEDS: PANTOPRAZOLE 40 MG TABLET PO SCH (09:45)
[2022-04-03] MEDS: GABAPENTIN 100 MG CAPSULE PO SCH ×3 (09:45→21:04)
[2022-04-03] MEDS: BUDESONIDE/FORMOTEROL 80-4.5 INHALER 6.9 GM INH SCH ×2 (09:47→21:06)
[2022-04-03] MEDS: DEXAMETHASONE INJ 40 MG in SODIUM CHLORIDE 0.9% 50 ML IV SCH (09:48)
[2022-04-03] MEDS ORDERED: LACTULOSE 20 GM/30 ML UDCUP PO ONE (10:32)
[2022-04-03] MEDS: MELOXICAM 7.5 MG TABLET PO SCH (21:04)
[2022-04-03] MEDS: hydrALAZINE 25 MG TABLET PO SCH (21:04)
[2022-04-03] MEDS: ENOXAPARIN 30 MG/0.3 ML SYRINGE SUBCUT SCH (21:05)
[2022-04-04 06:53] LABS: Basophils % 0.3 % (0.0-0.8); Hematocrit 44.2 VOL% (42.0-52.0); Hemoglobin 14.3 GM/DL (14.0-18.0); Immature Granulocytes % 2.3 %; Immature Granulocytes Absolute 0.28 #; Lymphocytes # 1.2 10*3/uL (1.4-4.0); Lymphocytes % 10.3 % (21.2-54.2); Mean Corpuscular HGB Conc 32.4 GM/DL (32-36); Mean Corpuscular Volume 95.9 FL (87-102); Monocytes # 1.2 10*3/uL (0.11-0.8); Monocytes % 10.3 % (1.7-12.7); NRBC # 0.02 10*3/uL; Neutrophils % 76.8 % (38.7-73.9); Platelet Count 229 T/CUMM (130-400); Red Blood Count 4.61 MC/CUMM (3.8-5.5); Red Cell Distribution Width 15.9 % (9.3-17.3)
[2022-04-04] MEDS: IPRATROPIUM 500 MCG/2.5 ML NEB RESP TX SCH ×4 (07:06→20:00)
[2022-04-04 07:10] LABS: Calcium 8.7 MG/DL (8.5-10.1); Potassium 4.1 MMOL/L (3.5-5.1)
[2022-04-04] MEDS: DOCUSATE SODIUM 100 MG CAPSULE PO SCH ×2 (10:53→21:49)
[2022-04-04] MEDS: MULTIVITAMIN (CENTRUM) TABLET PO SCH (10:53)
[2022-04-04] MEDS: amLODIPine 10 MG TABLET PO SCH (10:53)
[2022-04-04] MEDS: GABAPENTIN 100 MG CAPSULE PO SCH ×3 (10:54→21:49)
[2022-04-04] MEDS: hydrALAZINE 25 MG TABLET PO SCH ×2 (10:54→21:49)
[2022-04-04] MEDS: PANTOPRAZOLE 40 MG TABLET PO SCH (10:54)
[2022-04-04] MEDS: DEXAMETHASONE INJ 40 MG in SODIUM CHLORIDE 0.9% 50 ML IV SCH (10:55)
[2022-04-04] MEDS: BUDESONIDE/FORMOTEROL 80-4.5 INHALER 6.9 GM INH SCH ×2 (10:58→21:55)
[2022-04-04] MEDS: MELOXICAM 7.5 MG TABLET PO SCH (21:49)
[2022-04-04] MEDS: ENOXAPARIN 30 MG/0.3 ML SYRINGE SUBCUT SCH (21:50)
[2022-04-05] MEDS: IPRATROPIUM 500 MCG/2.5 ML NEB RESP TX SCH ×4 (07:14→19:35)
[2022-04-05] MEDS: GABAPENTIN 100 MG CAPSULE PO SCH ×3 (09:33→22:08)
[2022-04-05] MEDS: amLODIPine 10 MG TABLET PO SCH (09:33)
[2022-04-05] MEDS: hydrALAZINE 25 MG TABLET PO SCH ×2 (09:33→22:08)
[2022-04-05] MEDS: DOCUSATE SODIUM 100 MG CAPSULE PO SCH ×2 (09:33→22:08)
[2022-04-05] MEDS: MULTIVITAMIN (CENTRUM) TABLET PO SCH (09:33)
[2022-04-05] MEDS: PANTOPRAZOLE 40 MG TABLET PO SCH (09:33)
[2022-04-05] MEDS: BUDESONIDE/FORMOTEROL 80-4.5 INHALER 6.9 GM INH SCH ×2 (09:34→22:09)
[2022-04-05] MEDS: MELOXICAM 7.5 MG TABLET PO SCH (22:08)
[2022-04-05] MEDS: ENOXAPARIN 30 MG/0.3 ML SYRINGE SUBCUT SCH (22:08)
[2022-04-06] MEDS: IPRATROPIUM 500 MCG/2.5 ML NEB RESP TX SCH ×4 (07:21→19:21)
[2022-04-06] MEDS: DOCUSATE SODIUM 100 MG CAPSULE PO SCH ×2 (10:17→20:43)
[2022-04-06] MEDS: hydrALAZINE 25 MG TABLET PO SCH ×2 (10:17→20:44)
[2022-04-06] MEDS: GABAPENTIN 100 MG CAPSULE PO SCH ×3 (10:17→20:43)
[2022-04-06] MEDS: POLYETHYLENE GLYCOL POWDER 17 GM PACK PO SCH (10:17)
[2022-04-06] MEDS: amLODIPine 10 MG TABLET PO SCH (10:17)
[2022-04-06] MEDS: MULTIVITAMIN (CENTRUM) TABLET PO SCH (10:17)
[2022-04-06] MEDS: BUDESONIDE/FORMOTEROL 80-4.5 INHALER 6.9 GM INH SCH ×2 (10:18→20:44)
[2022-04-06] MEDS: PANTOPRAZOLE 40 MG TABLET PO SCH (10:18)
[2022-04-06] MEDS: MELOXICAM 7.5 MG TABLET PO SCH (20:43)
[2022-04-06] MEDS: ENOXAPARIN 30 MG/0.3 ML SYRINGE SUBCUT SCH (20:44)
[2022-04-07] MEDS: IPRATROPIUM 500 MCG/2.5 ML NEB RESP TX SCH ×4 (07:33→19:39)
[2022-04-07] MEDS: ENOXAPARIN 40 MG/0.4 ML SYRINGE SUBCUT SCH (08:08)
[2022-04-07] MEDS: DOCUSATE SODIUM 100 MG CAPSULE PO SCH ×2 (08:08→20:15)
[2022-04-07] MEDS: MULTIVITAMIN (CENTRUM) TABLET PO SCH (08:08)
[2022-04-07] MEDS: GABAPENTIN 100 MG CAPSULE PO SCH ×3 (08:08→20:15)
[2022-04-07] MEDS: POLYETHYLENE GLYCOL POWDER 17 GM PACK PO SCH (08:08)
[2022-04-07] MEDS: hydrALAZINE 25 MG TABLET PO SCH ×2 (08:09→20:15)
[2022-04-07] MEDS: amLODIPine 10 MG TABLET PO SCH (08:09)
[2022-04-07] MEDS: PANTOPRAZOLE 40 MG TABLET PO SCH (08:09)
[2022-04-07] MEDS: BUDESONIDE/FORMOTEROL 80-4.5 INHALER 6.9 GM INH SCH ×2 (08:10→20:16)
[2022-04-07] MEDS: MELOXICAM 7.5 MG TABLET PO SCH (20:15)
[2022-04-08 03:37] LABS: Basophils % 0.2 % (0.0-0.8); Eosinophils # 0.2 10*3/uL (0.0-0.87); Eosinophils % 1.8 % (0.00-10.9); Hematocrit 41.5 VOL% (42.0-52.0); Hemoglobin 13.6 GM/DL (14.0-18.0); Immature Granulocytes % 1.4 %; Immature Granulocytes Absolute 0.15 #; Lymphocytes # 2.4 10*3/uL (1.4-4.0); Lymphocytes % 21.8 % (21.2-54.2); Mean Corpuscular HGB Conc 32.8 GM/DL (32-36); Mean Corpuscular Volume 95.8 FL (87-102); Mean Platelet Volume 8.6 FL (9.6-12.0); Monocytes # 0.9 10*3/uL (0.11-0.8); Monocytes % 7.8 % (1.7-12.7); Platelet Count 218 T/CUMM (130-400); Red Blood Count 4.33 MC/CUMM (3.8-5.5); Red Cell Distribution Width 15.9 % (9.3-17.3); White Blood Count 10.9 T/CUMM (4-12)
[2022-04-08 06:14] LABS: Calcium 8.7 MG/DL (8.5-10.1); Osmolality,Calculated 279.4 MOS/KG (273-304); Potassium 4.2 MMOL/L (3.5-5.1)
[2022-04-08] MEDS: IPRATROPIUM 500 MCG/2.5 ML NEB RESP TX SCH ×3 (07:30→19:50)
[2022-04-08] MEDS: PANTOPRAZOLE 40 MG TABLET PO SCH (09:45)
[2022-04-08] MEDS: MULTIVITAMIN (CENTRUM) TABLET PO SCH (09:45)
[2022-04-08] MEDS: amLODIPine 10 MG TABLET PO SCH (09:46)
[2022-04-08] MEDS: hydrALAZINE 25 MG TABLET PO SCH ×2 (09:46→21:18)
[2022-04-08] MEDS: GABAPENTIN 100 MG CAPSULE PO SCH ×3 (09:46→21:18)
[2022-04-08] MEDS: BUDESONIDE/FORMOTEROL 80-4.5 INHALER 6.9 GM INH SCH ×2 (09:46→21:18)
[2022-04-08] MEDS: POLYETHYLENE GLYCOL POWDER 17 GM PACK PO SCH (09:46)
[2022-04-08] MEDS: DOCUSATE SODIUM 100 MG CAPSULE PO SCH ×2 (09:46→21:18)
[2022-04-08] MEDS: ENOXAPARIN 40 MG/0.4 ML SYRINGE SUBCUT SCH (09:46)
[2022-04-08] MEDS: MELOXICAM 7.5 MG TABLET PO SCH (21:18)
[2022-04-09 05:01] LABS: Basophils % 0.2 % (0.0-0.8); Eosinophils # 0.2 10*3/uL (0.0-0.87); Eosinophils % 2.2 % (0.00-10.9); Hematocrit 40.8 VOL% (42.0-52.0); Hemoglobin 13.1 GM/DL (14.0-18.0); Immature Granulocytes % 1.5 %; Immature Granulocytes Absolute 0.16 #; Lymphocytes # 2.4 10*3/uL (1.4-4.0); Lymphocytes % 23.1 % (21.2-54.2); Mean Corpuscular HGB Conc 32.1 GM/DL (32-36); Mean Corpuscular Volume 96.9 FL (87-102); Mean Platelet Volume 8.7 FL (9.6-12.0); Monocytes # 0.9 10*3/uL (0.11-0.8); Platelet Count 226 T/CUMM (130-400); Red Blood Count 4.21 MC/CUMM (3.8-5.5); Red Cell Distribution Width 15.9 % (9.3-17.3); White Blood Count 10.4 T/CUMM (4-12)
[2022-04-09 05:11] LABS: Calcium 8.6 MG/DL (8.5-10.1); Osmolality,Calculated 281.3 MOS/KG (273-304); Potassium 3.9 MMOL/L (3.5-5.1)
[2022-04-09] MEDS: IPRATROPIUM 500 MCG/2.5 ML NEB RESP TX SCH ×5 (07:05→19:14)
[2022-04-09] MEDS: POLYETHYLENE GLYCOL POWDER 17 GM PACK PO SCH (08:54)
[2022-04-09] MEDS: DOCUSATE SODIUM 100 MG CAPSULE PO SCH ×2 (08:55→21:48)
[2022-04-09] MEDS: amLODIPine 10 MG TABLET PO SCH (08:56)
[2022-04-09] MEDS: GABAPENTIN 100 MG CAPSULE PO SCH ×3 (08:56→21:48)
[2022-04-09] MEDS: hydrALAZINE 25 MG TABLET PO SCH ×2 (08:56→21:48)
[2022-04-09] MEDS: PANTOPRAZOLE 40 MG TABLET PO SCH (08:56)
[2022-04-09] MEDS: ENOXAPARIN 40 MG/0.4 ML SYRINGE SUBCUT SCH (08:57)
[2022-04-09] MEDS: MULTIVITAMIN (CENTRUM) TABLET PO SCH (08:57)
[2022-04-09] MEDS: BUDESONIDE/FORMOTEROL 80-4.5 INHALER 6.9 GM INH SCH ×2 (08:59→21:48)
[2022-04-09] MEDS: MELOXICAM 7.5 MG TABLET PO SCH (21:48)
[2022-04-10] MEDS: ACETAMINOPHEN 325 MG TABLET PO PRN ×2 (02:31→15:49)
[2022-04-10 04:46] LABS: Basophils % 0.2 % (0.0-0.8); Eosinophils # 0.2 10*3/uL (0.0-0.87); Hematocrit 42.3 VOL% (42.0-52.0); Hemoglobin 13.6 GM/DL (14.0-18.0); Immature Granulocytes Absolute 0.11 #; Lymphocytes # 1.6 10*3/uL (1.4-4.0); Lymphocytes % 14.5 % (21.2-54.2); Mean Corpuscular HGB Conc 32.2 GM/DL (32-36); Mean Corpuscular Volume 97.2 FL (87-102); Mean Platelet Volume 8.8 FL (9.6-12.0); Monocytes % 8.4 % (1.7-12.7); Neutrophils % 73.9 % (38.7-73.9); Platelet Count 230 T/CUMM (130-400); Red Blood Count 4.35 MC/CUMM (3.8-5.5); Red Cell Distribution Width 15.9 % (9.3-17.3); White Blood Count 11.3 T/CUMM (4-12)
[2022-04-10 05:07] LABS: Calcium 8.9 MG/DL (8.5-10.1); Osmolality,Calculated 273.7 MOS/KG (273-304); Potassium 3.9 MMOL/L (3.5-5.1)
[2022-04-10] MEDS: IPRATROPIUM 500 MCG/2.5 ML NEB RESP TX SCH ×4 (07:33→19:43)
[2022-04-10] MEDS: POLYETHYLENE GLYCOL POWDER 17 GM PACK PO SCH (09:48)
[2022-04-10] MEDS: DOCUSATE SODIUM 100 MG CAPSULE PO SCH ×2 (09:48→21:48)
[2022-04-10] MEDS: MULTIVITAMIN (CENTRUM) TABLET PO SCH (09:48)
[2022-04-10] MEDS: hydrALAZINE 25 MG TABLET PO SCH ×2 (09:49→21:48)
[2022-04-10] MEDS: amLODIPine 10 MG TABLET PO SCH (09:49)
[2022-04-10] MEDS: GABAPENTIN 100 MG CAPSULE PO SCH ×3 (09:49→21:48)
[2022-04-10] MEDS: PANTOPRAZOLE 40 MG TABLET PO SCH (09:49)
[2022-04-10] MEDS: ENOXAPARIN 40 MG/0.4 ML SYRINGE SUBCUT SCH (09:50)
[2022-04-10] MEDS: SPIRIVA INH SCH (09:52)
[2022-04-10] MEDS: BUDESONIDE/FORMOTEROL 80-4.5 INHALER 6.9 GM INH SCH ×2 (09:53→21:48)
[2022-04-10] MEDS: MELOXICAM 7.5 MG TABLET PO SCH (21:48)
[2022-04-11] MEDS: IPRATROPIUM 500 MCG/2.5 ML NEB RESP TX SCH ×4 (07:03→19:50)
[2022-04-11] MEDS: PANTOPRAZOLE 40 MG TABLET PO SCH (08:44)
[2022-04-11] MEDS: hydrALAZINE 25 MG TABLET PO SCH ×2 (08:44→22:16)
[2022-04-11] MEDS: POLYETHYLENE GLYCOL POWDER 17 GM PACK PO SCH (08:44)
[2022-04-11] MEDS: ENOXAPARIN 40 MG/0.4 ML SYRINGE SUBCUT SCH (08:45)
[2022-04-11] MEDS: amLODIPine 10 MG TABLET PO SCH (08:45)
[2022-04-11] MEDS: MULTIVITAMIN (CENTRUM) TABLET PO SCH (08:45)
[2022-04-11] MEDS: GABAPENTIN 100 MG CAPSULE PO SCH ×3 (08:45→22:15)
[2022-04-11] MEDS: DOCUSATE SODIUM 100 MG CAPSULE PO SCH ×2 (08:45→22:20)
[2022-04-11] MEDS: SPIRIVA INH SCH (08:47)
[2022-04-11] MEDS: BUDESONIDE/FORMOTEROL 80-4.5 INHALER 6.9 GM INH SCH ×2 (08:47→22:20)
[2022-04-11] MEDS: ACETAMINOPHEN 325 MG TABLET PO PRN ×2 (08:49→22:16)
[2022-04-11] MEDS: MELOXICAM 7.5 MG TABLET PO SCH (22:25)
[2022-04-12 04:42] LABS: Basophils % 0.4 % (0.0-0.8); Eosinophils # 0.2 10*3/uL (0.0-0.87); Hematocrit 41.7 VOL% (42.0-52.0); Hemoglobin 13.4 GM/DL (14.0-18.0); Immature Granulocytes % 0.7 %; Immature Granulocytes Absolute 0.06 #; Lymphocytes # 1.6 10*3/uL (1.4-4.0); Mean Corpuscular HGB Conc 32.1 GM/DL (32-36); Mean Corpuscular Volume 97.2 FL (87-102); Mean Platelet Volume 8.8 FL (9.6-12.0); Monocytes # 0.9 10*3/uL (0.11-0.8); Monocytes % 10.4 % (1.7-12.7); Neutrophils % 68.5 % (38.7-73.9); Platelet Count 231 T/CUMM (130-400); Red Blood Count 4.29 MC/CUMM (3.8-5.5); Red Cell Distribution Width 15.9 % (9.3-17.3); White Blood Count 8.9 T/CUMM (4-12)
[2022-04-12 05:03] LABS: Alanine Aminotransferase 39 U/L (16-61); Albumin 2.7 G/DL (3.4-5.0); Alkaline Phosphatase 67 U/L (45-117); Aspartate Amino Transferase 18 U/L (0-37); Bilirubin,Total < 0.39 MG/DL (0.20-1.00); Blood Urea Nitrogen 14 MG/DL (7-18); Calcium 9.3 MG/DL (8.5-10.1); Carbon Dioxide 27 MMOL/L (21-32); Chloride 105 MMOL/L (98-107); Glucose 88 MG/DL (74-106); Osmolality,Calculated 274.7 MOS/KG (273-304); Potassium 4.1 MMOL/L (3.5-5.1); Sodium 138 MMOL/L (136-145); Total Protein 6.9 G/DL (6.4-8.2)
[2022-04-12] MEDS: IPRATROPIUM 500 MCG/2.5 ML NEB RESP TX SCH ×4 (07:00→19:27)
[2022-04-12] MEDS: amLODIPine 10 MG TABLET PO SCH (09:47)
[2022-04-12] MEDS: MULTIVITAMIN (CENTRUM) TABLET PO SCH (09:47)
[2022-04-12] MEDS: GABAPENTIN 100 MG CAPSULE PO SCH ×3 (09:47→20:00)
[2022-04-12] MEDS: PANTOPRAZOLE 40 MG TABLET PO SCH (09:47)
[2022-04-12] MEDS: POLYETHYLENE GLYCOL POWDER 17 GM PACK PO SCH (09:47)
[2022-04-12] MEDS: hydrALAZINE 25 MG TABLET PO SCH ×2 (09:47→20:00)
[2022-04-12] MEDS: DOCUSATE SODIUM 100 MG CAPSULE PO SCH ×2 (09:47→20:00)
[2022-04-12] MEDS: ENOXAPARIN 40 MG/0.4 ML SYRINGE SUBCUT SCH (09:48)
[2022-04-12] MEDS: BUDESONIDE/FORMOTEROL 80-4.5 INHALER 6.9 GM INH SCH ×2 (09:49→20:00)
[2022-04-12] MEDS: SPIRIVA INH SCH (09:54)
[2022-04-12] MEDS: MELOXICAM 7.5 MG TABLET PO SCH (20:00)
[2022-04-13] MEDS: IPRATROPIUM 500 MCG/2.5 ML NEB RESP TX SCH ×4 (07:15→19:25)
[2022-04-13] MEDS: POLYETHYLENE GLYCOL POWDER 17 GM PACK PO SCH (09:16)
[2022-04-13] MEDS: MULTIVITAMIN (CENTRUM) TABLET PO SCH (09:17)
[2022-04-13] MEDS: DOCUSATE SODIUM 100 MG CAPSULE PO SCH ×2 (09:17→20:27)
[2022-04-13] MEDS: hydrALAZINE 25 MG TABLET PO SCH ×2 (09:17→20:27)
[2022-04-13] MEDS: amLODIPine 10 MG TABLET PO SCH (09:18)
[2022-04-13] MEDS: GABAPENTIN 100 MG CAPSULE PO SCH ×3 (09:18→20:27)
[2022-04-13] MEDS: PANTOPRAZOLE 40 MG TABLET PO SCH (09:18)
[2022-04-13] MEDS: BUDESONIDE/FORMOTEROL 80-4.5 INHALER 6.9 GM INH SCH ×2 (09:19→20:28)
[2022-04-13] MEDS: SPIRIVA INH SCH (09:19)
[2022-04-13] MEDS: ENOXAPARIN 40 MG/0.4 ML SYRINGE SUBCUT SCH (09:20)
[2022-04-13] MEDS ORDERED: SIMETHICONE CHEW 125 MG TABLET PO PRN (13:42)
[2022-04-13] MEDS: MELOXICAM 7.5 MG TABLET PO SCH (20:27)
[2022-04-14] MEDS: IPRATROPIUM 500 MCG/2.5 ML NEB RESP TX SCH ×4 (07:47→19:36)
[2022-04-14] MEDS: POLYETHYLENE GLYCOL POWDER 17 GM PACK PO SCH (09:08)
[2022-04-14] MEDS: DOCUSATE SODIUM 100 MG CAPSULE PO SCH ×2 (09:09→20:31)
[2022-04-14] MEDS: GABAPENTIN 100 MG CAPSULE PO SCH ×3 (09:09→20:31)
[2022-04-14] MEDS: MULTIVITAMIN (CENTRUM) TABLET PO SCH (09:09)
[2022-04-14] MEDS: SPIRIVA INH SCH (09:10)
[2022-04-14] MEDS: amLODIPine 10 MG TABLET PO SCH (09:10)
[2022-04-14] MEDS: PANTOPRAZOLE 40 MG TABLET PO SCH (09:10)
[2022-04-14] MEDS: hydrALAZINE 25 MG TABLET PO SCH ×2 (09:10→20:31)
[2022-04-14] MEDS: BUDESONIDE/FORMOTEROL 80-4.5 INHALER 6.9 GM INH SCH ×2 (09:11→20:33)
[2022-04-14] MEDS: ENOXAPARIN 40 MG/0.4 ML SYRINGE SUBCUT SCH (09:12)
[2022-04-14] MEDS: ACETAMINOPHEN 325 MG TABLET PO PRN ×2 (09:24→17:10)
[2022-04-14] MEDS: MELOXICAM 7.5 MG TABLET PO SCH (20:31)
[2022-04-15] MEDS: IPRATROPIUM 500 MCG/2.5 ML NEB RESP TX SCH ×4 (07:19→21:30)
[2022-04-15 07:50] LABS: Basophils # 0.1 10*3/uL (0.0-0.2); Basophils % 0.6 % (0.0-0.8); Eosinophils # 0.2 10*3/uL (0.0-0.87); Eosinophils % 2.3 % (0.00-10.9); Hematocrit 41.7 VOL% (42.0-52.0); Hemoglobin 13.2 GM/DL (14.0-18.0); Immature Granulocytes % 0.5 %; Immature Granulocytes Absolute 0.04 #; Lymphocytes # 1.7 10*3/uL (1.4-4.0); Lymphocytes % 19.3 % (21.2-54.2); Mean Corpuscular HGB Conc 31.7 GM/DL (32-36); Mean Platelet Volume 8.6 FL (9.6-12.0); Monocytes # 0.7 10*3/uL (0.11-0.8); Monocytes % 7.8 % (1.7-12.7); Neutrophils % 69.5 % (38.7-73.9); Platelet Count 223 T/CUMM (130-400); Red Cell Distribution Width 15.6 % (9.3-17.3); White Blood Count 8.6 T/CUMM (4-12)
[2022-04-15 08:08] LABS: Albumin 2.7 G/DL (3.4-5.0); Bilirubin,Total 0.5 MG/DL (0.20-1.00); Calcium 8.9 MG/DL (8.5-10.1); Osmolality,Calculated 272.7 MOS/KG (273-304); Potassium 4.2 MMOL/L (3.5-5.1); Total Protein 7.1 G/DL (6.4-8.2)
[2022-04-15] MEDS: POLYETHYLENE GLYCOL POWDER 17 GM PACK PO SCH (09:03)
[2022-04-15] MEDS: ENOXAPARIN 40 MG/0.4 ML SYRINGE SUBCUT SCH (09:04)
[2022-04-15] MEDS: DOCUSATE SODIUM 100 MG CAPSULE PO SCH ×2 (09:04→20:27)
[2022-04-15] MEDS: GABAPENTIN 100 MG CAPSULE PO SCH ×3 (09:04→20:28)
[2022-04-15] MEDS: amLODIPine 10 MG TABLET PO SCH (09:05)
[2022-04-15] MEDS: hydrALAZINE 25 MG TABLET PO SCH ×2 (09:05→20:28)
[2022-04-15] MEDS: PANTOPRAZOLE 40 MG TABLET PO SCH (09:05)
[2022-04-15] MEDS: MULTIVITAMIN (CENTRUM) TABLET PO SCH (09:05)
[2022-04-15] MEDS: SPIRIVA INH SCH (09:07)
[2022-04-15] MEDS: BUDESONIDE/FORMOTEROL 80-4.5 INHALER 6.9 GM INH SCH ×2 (09:07→20:28)
[2022-04-15] MEDS: MELOXICAM 7.5 MG TABLET PO SCH (20:28)
[2022-04-15] MEDS: traMADol 50 MG TABLET PO PRN (20:35)
[2022-04-16] MEDS: IPRATROPIUM 500 MCG/2.5 ML NEB RESP TX SCH ×4 (07:22→19:46)
[2022-04-16] MEDS: POLYETHYLENE GLYCOL POWDER 17 GM PACK PO SCH (09:23)
[2022-04-16] MEDS: hydrALAZINE 25 MG TABLET PO SCH ×2 (09:24→21:23)
[2022-04-16] MEDS: PANTOPRAZOLE 40 MG TABLET PO SCH (09:24)
[2022-04-16] MEDS: amLODIPine 10 MG TABLET PO SCH (09:24)
[2022-04-16] MEDS: MULTIVITAMIN (CENTRUM) TABLET PO SCH (09:25)
[2022-04-16] MEDS: ENOXAPARIN 40 MG/0.4 ML SYRINGE SUBCUT SCH (09:25)
[2022-04-16] MEDS: DOCUSATE SODIUM 100 MG CAPSULE PO SCH ×2 (09:25→21:23)
[2022-04-16] MEDS: GABAPENTIN 100 MG CAPSULE PO SCH ×3 (09:25→21:23)
[2022-04-16] MEDS: BUDESONIDE/FORMOTEROL 80-4.5 INHALER 6.9 GM INH SCH ×2 (09:25→21:24)
[2022-04-16] MEDS: SPIRIVA INH SCH (09:26)
[2022-04-16] MEDS: traMADol 50 MG TABLET PO PRN (15:26)
[2022-04-16] MEDS: MELOXICAM 7.5 MG TABLET PO SCH (21:23)
[2022-04-17 05:13] LABS: Basophils % 0.6 % (0.0-0.8); Eosinophils # 0.2 10*3/uL (0.0-0.87); Eosinophils % 2.7 % (0.00-10.9); Hematocrit 34.3 VOL% (42.0-52.0); Immature Granulocytes % 0.3 %; Immature Granulocytes Absolute 0.02 #; Lymphocytes # 1.5 10*3/uL (1.4-4.0); Lymphocytes % 21.3 % (21.2-54.2); Mean Corpuscular HGB Conc 31.5 GM/DL (32-36); Mean Corpuscular Volume 98.3 FL (87-102); Mean Platelet Volume 9.1 FL (9.6-12.0); Monocytes # 0.5 10*3/uL (0.11-0.8); Monocytes % 6.7 % (1.7-12.7); Neutrophils % 68.4 % (38.7-73.9); Platelet Count 194 T/CUMM (130-400); Red Blood Count 3.49 MC/CUMM (3.8-5.5); Red Cell Distribution Width 15.3 % (9.3-17.3); White Blood Count 7.1 T/CUMM (4-12)
[2022-04-17 05:35] LABS: Hemoglobin 10.8 GM/DL (14.0-18.0)
[2022-04-17 05:42] LABS: Alanine Aminotransferase 30 U/L (16-61); Albumin 1.9 G/DL (3.4-5.0); Alkaline Phosphatase 50 U/L (45-117); Aspartate Amino Transferase 29 U/L (0-37); Bilirubin,Total < 0.39 MG/DL (0.20-1.00); Blood Urea Nitrogen 8 MG/DL (7-18); Calcium 6.8 MG/DL (8.5-10.1); Carbon Dioxide 21 MMOL/L (21-32); Chloride 118 MMOL/L (98-107); Glucose 71 MG/DL (74-106); Potassium 3.5 MMOL/L (3.5-5.1); Sodium 143 MMOL/L (136-145); Total Protein 5.2 G/DL (6.4-8.2)
[2022-04-17] MEDS: IPRATROPIUM 500 MCG/2.5 ML NEB RESP TX SCH ×4 (07:00→19:00)
[2022-04-17] MEDS: POLYETHYLENE GLYCOL POWDER 17 GM PACK PO SCH (09:09)
[2022-04-17] MEDS: PANTOPRAZOLE 40 MG TABLET PO SCH (09:10)
[2022-04-17] MEDS: GABAPENTIN 100 MG CAPSULE PO SCH ×3 (09:10→21:46)
[2022-04-17] MEDS: amLODIPine 10 MG TABLET PO SCH (09:11)
[2022-04-17] MEDS: MULTIVITAMIN (CENTRUM) TABLET PO SCH (09:11)
[2022-04-17] MEDS: hydrALAZINE 25 MG TABLET PO SCH ×2 (09:11→21:46)
[2022-04-17] MEDS: DOCUSATE SODIUM 100 MG CAPSULE PO SCH ×2 (09:11→21:46)
[2022-04-17] MEDS: BUDESONIDE/FORMOTEROL 80-4.5 INHALER 6.9 GM INH SCH ×2 (09:12→21:46)
[2022-04-17] MEDS: ENOXAPARIN 40 MG/0.4 ML SYRINGE SUBCUT SCH (09:14)
[2022-04-17] MEDS: SPIRIVA INH SCH (09:14)
[2022-04-17] MEDS: traMADol 50 MG TABLET PO PRN (14:25)
[2022-04-17] MEDS: MELOXICAM 7.5 MG TABLET PO SCH (21:46)
[2022-04-18] MEDS: hydrALAZINE 20 MG/1 ML VIAL IV PRN (03:36)
[2022-04-18] MEDS: IPRATROPIUM 500 MCG/2.5 ML NEB RESP TX SCH ×4 (07:04→19:25)
[2022-04-18 08:34] LABS: Calcium 9.3 MG/DL (8.5-10.1); Osmolality,Calculated 275.5 MOS/KG (273-304); Potassium 3.8 MMOL/L (3.5-5.1)
[2022-04-18] MEDS: POLYETHYLENE GLYCOL POWDER 17 GM PACK PO SCH (09:13)
[2022-04-18] MEDS: ACETAMINOPHEN 325 MG TABLET PO PRN (09:14)
[2022-04-18] MEDS: MULTIVITAMIN (CENTRUM) TABLET PO SCH (09:15)
[2022-04-18] MEDS: GABAPENTIN 100 MG CAPSULE PO SCH ×3 (09:16→21:14)
[2022-04-18] MEDS: hydrALAZINE 25 MG TABLET PO SCH ×2 (09:16→21:14)
[2022-04-18] MEDS: PANTOPRAZOLE 40 MG TABLET PO SCH (09:16)
[2022-04-18] MEDS: DOCUSATE SODIUM 100 MG CAPSULE PO SCH ×2 (09:16→21:14)
[2022-04-18] MEDS: amLODIPine 10 MG TABLET PO SCH (09:16)
[2022-04-18] MEDS: ENOXAPARIN 40 MG/0.4 ML SYRINGE SUBCUT SCH (09:18)
[2022-04-18] MEDS: BUDESONIDE/FORMOTEROL 80-4.5 INHALER 6.9 GM INH SCH ×2 (09:19→21:14)
[2022-04-18] MEDS: SPIRIVA INH SCH (09:20)
[2022-04-18] MEDS ORDERED: ACETAMINOPHEN 325 MG TABLET PO PRN (11:19)
[2022-04-18] MEDS: CHOLECALCIFEROL 5,000 UNIT TABLET PO SCH (12:52)
[2022-04-18] MEDS: MELOXICAM 7.5 MG TABLET PO SCH (21:14)
[2022-04-19] MEDS: IPRATROPIUM 500 MCG/2.5 ML NEB RESP TX SCH ×3 (07:12→19:51)
[2022-04-19] MEDS: ENOXAPARIN 40 MG/0.4 ML SYRINGE SUBCUT SCH (09:12)
[2022-04-19] MEDS: CHOLECALCIFEROL 5,000 UNIT TABLET PO SCH (09:12)
[2022-04-19] MEDS: POLYETHYLENE GLYCOL POWDER 17 GM PACK PO SCH (09:12)
[2022-04-19] MEDS: BUDESONIDE/FORMOTEROL 80-4.5 INHALER 6.9 GM INH SCH ×2 (09:13→21:16)
[2022-04-19] MEDS: GABAPENTIN 100 MG CAPSULE PO SCH ×3 (09:13→21:17)
[2022-04-19] MEDS: MULTIVITAMIN (CENTRUM) TABLET PO SCH (09:13)
[2022-04-19] MEDS: amLODIPine 10 MG TABLET PO SCH (09:13)
[2022-04-19] MEDS: DOCUSATE SODIUM 100 MG CAPSULE PO SCH ×2 (09:13→21:18)
[2022-04-19] MEDS: hydrALAZINE 25 MG TABLET PO SCH ×2 (09:13→21:17)
[2022-04-19] MEDS: PANTOPRAZOLE 40 MG TABLET PO SCH (09:13)
[2022-04-19] MEDS: SPIRIVA INH SCH (09:14)
[2022-04-19] MEDS: MELOXICAM 7.5 MG TABLET PO SCH (21:18)
[2022-04-20 05:33] LABS: Basophils % 0.6 % (0.0-0.8); Eosinophils # 0.2 10*3/uL (0.0-0.87); Eosinophils % 3.6 % (0.00-10.9); Hematocrit 40.5 VOL% (42.0-52.0); Hemoglobin 12.7 GM/DL (14.0-18.0); Immature Granulocytes % 0.3 %; Immature Granulocytes Absolute 0.02 #; Lymphocytes # 1.6 10*3/uL (1.4-4.0); Lymphocytes % 24.5 % (21.2-54.2); Mean Corpuscular HGB Conc 31.4 GM/DL (32-36); Mean Corpuscular Volume 97.6 FL (87-102); Monocytes # 0.6 10*3/uL (0.11-0.8); Monocytes % 8.3 % (1.7-12.7); Neutrophils % 62.7 % (38.7-73.9); Platelet Count 232 T/CUMM (130-400); Red Blood Count 4.15 MC/CUMM (3.8-5.5); Red Cell Distribution Width 14.8 % (9.3-17.3); White Blood Count 6.7 T/CUMM (4-12)
[2022-04-20 05:51] LABS: Albumin 2.8 G/DL (3.4-5.0); Bilirubin,Total 0.4 MG/DL (0.20-1.00); Calcium 9.3 MG/DL (8.5-10.1); Osmolality,Calculated 280.1 MOS/KG (273-304); Potassium 4.2 MMOL/L (3.5-5.1); Total Protein 6.8 G/DL (6.4-8.2)
[2022-04-20] MEDS: IPRATROPIUM 500 MCG/2.5 ML NEB RESP TX SCH ×4 (07:06→19:23)
[2022-04-20] MEDS: POLYETHYLENE GLYCOL POWDER 17 GM PACK PO SCH (09:00)
[2022-04-20] MEDS: ENOXAPARIN 40 MG/0.4 ML SYRINGE SUBCUT SCH (09:01)
[2022-04-20] MEDS: DOCUSATE SODIUM 100 MG CAPSULE PO SCH ×2 (09:01→22:06)
[2022-04-20] MEDS: MULTIVITAMIN (CENTRUM) TABLET PO SCH (09:01)
[2022-04-20] MEDS: hydrALAZINE 25 MG TABLET PO SCH ×2 (09:01→22:06)
[2022-04-20] MEDS: amLODIPine 10 MG TABLET PO SCH (09:01)
[2022-04-20] MEDS: PANTOPRAZOLE 40 MG TABLET PO SCH (09:01)
[2022-04-20] MEDS: GABAPENTIN 100 MG CAPSULE PO SCH ×3 (09:01→22:06)
[2022-04-20] MEDS: BUDESONIDE/FORMOTEROL 80-4.5 INHALER 6.9 GM INH SCH ×2 (09:02→22:08)
[2022-04-20] MEDS: SPIRIVA INH SCH (09:02)
[2022-04-20] MEDS: CHOLECALCIFEROL 5,000 UNIT TABLET PO SCH (09:02)
[2022-04-20] MEDS: MELOXICAM 7.5 MG TABLET PO SCH (22:07)
[2022-04-21] MEDS: IPRATROPIUM 500 MCG/2.5 ML NEB RESP TX SCH ×4 (07:12→19:04)
[2022-04-21] MEDS: DOCUSATE SODIUM 100 MG CAPSULE PO SCH ×2 (10:07→21:33)
[2022-04-21] MEDS: GABAPENTIN 100 MG CAPSULE PO SCH ×3 (10:07→21:33)
[2022-04-21] MEDS: MULTIVITAMIN (CENTRUM) TABLET PO SCH (10:07)
[2022-04-21] MEDS: PANTOPRAZOLE 40 MG TABLET PO SCH (10:07)
[2022-04-21] MEDS: amLODIPine 10 MG TABLET PO SCH (10:07)
[2022-04-21] MEDS: hydrALAZINE 25 MG TABLET PO SCH ×2 (10:07→21:33)
[2022-04-21] MEDS: POLYETHYLENE GLYCOL POWDER 17 GM PACK PO SCH (10:07)
[2022-04-21] MEDS: ENOXAPARIN 40 MG/0.4 ML SYRINGE SUBCUT SCH (10:08)
[2022-04-21] MEDS: BUDESONIDE/FORMOTEROL 80-4.5 INHALER 6.9 GM INH SCH ×2 (10:08→21:33)
[2022-04-21] MEDS: SPIRIVA INH SCH (10:39)
[2022-04-21] MEDS: CHOLECALCIFEROL 5,000 UNIT TABLET PO SCH (10:39)
[2022-04-21] MEDS: MELOXICAM 7.5 MG TABLET PO SCH (21:33)
[2022-04-22] MEDS: IPRATROPIUM 500 MCG/2.5 ML NEB RESP TX SCH ×4 (07:07→19:35)
[2022-04-22] MEDS: PANTOPRAZOLE 40 MG TABLET PO SCH (09:47)
[2022-04-22] MEDS: MULTIVITAMIN (CENTRUM) TABLET PO SCH (09:47)
[2022-04-22] MEDS: ENOXAPARIN 40 MG/0.4 ML SYRINGE SUBCUT SCH (09:47)
[2022-04-22] MEDS: amLODIPine 10 MG TABLET PO SCH (09:47)
[2022-04-22] MEDS: DOCUSATE SODIUM 100 MG CAPSULE PO SCH ×2 (09:47→20:30)
[2022-04-22] MEDS: CHOLECALCIFEROL 5,000 UNIT TABLET PO SCH (09:47)
[2022-04-22] MEDS: GABAPENTIN 100 MG CAPSULE PO SCH ×3 (09:47→20:30)
[2022-04-22] MEDS: hydrALAZINE 25 MG TABLET PO SCH ×2 (09:47→20:30)
[2022-04-22] MEDS: POLYETHYLENE GLYCOL POWDER 17 GM PACK PO SCH (09:50)
[2022-04-22] MEDS: SPIRIVA INH SCH (09:50)
[2022-04-22] MEDS: BUDESONIDE/FORMOTEROL 80-4.5 INHALER 6.9 GM INH SCH ×2 (09:50→20:30)
[2022-04-22] MEDS: DEXAMETHASONE 4 MG TABLET PO SCH ×2 (14:18→20:30)
[2022-04-22] MEDS: MELOXICAM 7.5 MG TABLET PO SCH (20:30)
[2022-04-23] MEDS: IPRATROPIUM 500 MCG/2.5 ML NEB RESP TX SCH ×4 (06:56→20:15)
[2022-04-23] MEDS: hydrALAZINE 25 MG TABLET PO SCH ×2 (08:34→20:56)
[2022-04-23] MEDS: CHOLECALCIFEROL 5,000 UNIT TABLET PO SCH (08:34)
[2022-04-23] MEDS: MULTIVITAMIN (CENTRUM) TABLET PO SCH (08:34)
[2022-04-23] MEDS: BUDESONIDE/FORMOTEROL 80-4.5 INHALER 6.9 GM INH SCH ×2 (08:35→20:57)
[2022-04-23] MEDS: DOCUSATE SODIUM 100 MG CAPSULE PO SCH ×2 (08:35→20:56)
[2022-04-23] MEDS: amLODIPine 10 MG TABLET PO SCH (08:35)
[2022-04-23] MEDS: PANTOPRAZOLE 40 MG TABLET PO SCH (08:35)
[2022-04-23] MEDS: GABAPENTIN 100 MG CAPSULE PO SCH ×3 (08:35→20:56)
[2022-04-23] MEDS: POLYETHYLENE GLYCOL POWDER 17 GM PACK PO SCH (08:35)
[2022-04-23] MEDS: ENOXAPARIN 40 MG/0.4 ML SYRINGE SUBCUT SCH (08:35)
[2022-04-23] MEDS: DEXAMETHASONE 4 MG TABLET PO SCH ×2 (08:35→20:56)
[2022-04-23] MEDS: SPIRIVA INH SCH (08:36)
[2022-04-23] MEDS: MELOXICAM 7.5 MG TABLET PO SCH (20:56)
[2022-04-24 05:57] LABS: Basophils % 0.2 % (0.0-0.8); Eosinophils % 0.1 % (0.00-10.9); Hematocrit 41.9 VOL% (42.0-52.0); Hemoglobin 13.7 GM/DL (14.0-18.0); Immature Granulocytes % 1.1 %; Immature Granulocytes Absolute 0.11 #; Lymphocytes # 1.9 10*3/uL (1.4-4.0); Lymphocytes % 18.5 % (21.2-54.2); Mean Corpuscular HGB Conc 32.7 GM/DL (32-36); Mean Corpuscular Volume 95.4 FL (87-102); Mean Platelet Volume 9.4 FL (9.6-12.0); Monocytes # 1.2 10*3/uL (0.11-0.8); Neutrophils % 68.1 % (38.7-73.9); Platelet Count 325 T/CUMM (130-400); Red Blood Count 4.39 MC/CUMM (3.8-5.5); Red Cell Distribution Width 14.6 % (9.3-17.3)
[2022-04-24 06:14] LABS: Alanine Aminotransferase 61 U/L (16-61); Albumin 3.1 G/DL (3.4-5.0); Alkaline Phosphatase 70 U/L (45-117); Aspartate Amino Transferase 38 U/L (0-37); Bilirubin,Total < 0.39 MG/DL (0.20-1.00); Blood Urea Nitrogen 11 MG/DL (7-18); Calcium 9.6 MG/DL (8.5-10.1); Carbon Dioxide 27 MMOL/L (21-32); Chloride 105 MMOL/L (98-107); Glucose 115 MG/DL (74-106); Osmolality,Calculated 274.7 MOS/KG (273-304); Sodium 138 MMOL/L (136-145); Total Protein 7.3 G/DL (6.4-8.2)
[2022-04-24] MEDS: IPRATROPIUM 500 MCG/2.5 ML NEB RESP TX SCH ×4 (07:10→19:40)
[2022-04-24] MEDS: hydrALAZINE 25 MG TABLET PO SCH ×2 (09:12→20:59)
[2022-04-24] MEDS: amLODIPine 10 MG TABLET PO SCH (09:12)
[2022-04-24] MEDS: DOCUSATE SODIUM 100 MG CAPSULE PO SCH ×2 (09:12→20:59)
[2022-04-24] MEDS: ENOXAPARIN 40 MG/0.4 ML SYRINGE SUBCUT SCH (09:12)
[2022-04-24] MEDS: MULTIVITAMIN (CENTRUM) TABLET PO SCH (09:13)
[2022-04-24] MEDS: GABAPENTIN 100 MG CAPSULE PO SCH ×3 (09:13→20:59)
[2022-04-24] MEDS: CHOLECALCIFEROL 5,000 UNIT TABLET PO SCH (09:13)
[2022-04-24] MEDS: PANTOPRAZOLE 40 MG TABLET PO SCH (09:13)
[2022-04-24] MEDS: BUDESONIDE/FORMOTEROL 80-4.5 INHALER 6.9 GM INH SCH ×2 (09:14→20:59)
[2022-04-24] MEDS: DEXAMETHASONE 4 MG TABLET PO SCH ×2 (09:15→20:59)
[2022-04-24] MEDS: SPIRIVA INH SCH (09:16)
[2022-04-24] MEDS: POLYETHYLENE GLYCOL POWDER 17 GM PACK PO SCH (09:16)
[2022-04-24] MEDS: MELOXICAM 7.5 MG TABLET PO SCH (20:59)
[2022-04-25] MEDS: IPRATROPIUM 500 MCG/2.5 ML NEB RESP TX SCH ×4 (07:17→19:00)
[2022-04-25] MEDS: DOCUSATE SODIUM 100 MG CAPSULE PO SCH ×2 (09:10→20:28)
[2022-04-25] MEDS: MULTIVITAMIN (CENTRUM) TABLET PO SCH (09:10)
[2022-04-25] MEDS: ENOXAPARIN 40 MG/0.4 ML SYRINGE SUBCUT SCH (09:10)
[2022-04-25] MEDS: GABAPENTIN 100 MG CAPSULE PO SCH ×3 (09:10→20:27)
[2022-04-25] MEDS: hydrALAZINE 25 MG TABLET PO SCH ×2 (09:11→20:27)
[2022-04-25] MEDS: PANTOPRAZOLE 40 MG TABLET PO SCH (09:11)
[2022-04-25] MEDS: SPIRIVA INH SCH (09:11)
[2022-04-25] MEDS: DEXAMETHASONE 4 MG TABLET PO SCH ×2 (09:11→20:28)
[2022-04-25] MEDS: CHOLECALCIFEROL 5,000 UNIT TABLET PO SCH (09:11)
[2022-04-25] MEDS: BUDESONIDE/FORMOTEROL 80-4.5 INHALER 6.9 GM INH SCH ×2 (09:11→20:29)
[2022-04-25] MEDS: amLODIPine 10 MG TABLET PO SCH (09:11)
[2022-04-25] MEDS: POLYETHYLENE GLYCOL POWDER 17 GM PACK PO SCH (09:16)
[2022-04-25] MEDS: MELOXICAM 7.5 MG TABLET PO SCH (20:27)
[2022-04-26] MEDS: hydrALAZINE 20 MG/1 ML VIAL IV PRN (05:54)
[2022-04-26] MEDS: IPRATROPIUM 500 MCG/2.5 ML NEB RESP TX SCH ×3 (06:56→14:40)
[2022-04-26] MEDS: POLYETHYLENE GLYCOL POWDER 17 GM PACK PO SCH (08:40)
[2022-04-26] MEDS: amLODIPine 10 MG TABLET PO SCH (08:40)
[2022-04-26] MEDS: MULTIVITAMIN (CENTRUM) TABLET PO SCH (08:41)
[2022-04-26] MEDS: PANTOPRAZOLE 40 MG TABLET PO SCH (08:41)
[2022-04-26] MEDS: ENOXAPARIN 40 MG/0.4 ML SYRINGE SUBCUT SCH (08:41)
[2022-04-26] MEDS: CHOLECALCIFEROL 5,000 UNIT TABLET PO SCH (08:41)
[2022-04-26] MEDS: hydrALAZINE 25 MG TABLET PO SCH (08:41)
[2022-04-26] MEDS: DEXAMETHASONE 4 MG TABLET PO SCH (08:41)
[2022-04-26] MEDS: DOCUSATE SODIUM 100 MG CAPSULE PO SCH (08:42)
[2022-04-26 08:44] LABS: Basophils # 0.1 10*3/uL (0.0-0.2); Basophils % 0.7 % (0.0-0.8); Eosinophils % 0.1 % (0.00-10.9); Hematocrit 46.1 VOL% (42.0-52.0); Hemoglobin 14.9 GM/DL (14.0-18.0); Immature Granulocytes % 5.9 %; Lymphocytes # 2.5 10*3/uL (1.4-4.0); Lymphocytes % 18.1 % (21.2-54.2); Mean Corpuscular HGB Conc 32.3 GM/DL (32-36); Mean Corpuscular Volume 94.3 FL (87-102); Mean Platelet Volume 9.4 FL (9.6-12.0); Monocytes # 1.4 10*3/uL (0.11-0.8); Monocytes % 9.9 % (1.7-12.7); Neutrophils % 65.3 % (38.7-73.9); Platelet Count 381 T/CUMM (130-400); Red Blood Count 4.89 MC/CUMM (3.8-5.5); Red Cell Distribution Width 14.6 % (9.3-17.3); White Blood Count 13.6 T/CUMM (4-12)
[2022-04-26] MEDS: GABAPENTIN 100 MG CAPSULE PO SCH ×2 (08:45→15:01)
[2022-04-26] MEDS: SPIRIVA INH SCH (08:46)
[2022-04-26] MEDS: BUDESONIDE/FORMOTEROL 80-4.5 INHALER 6.9 GM INH SCH (08:47)
[2022-04-26 09:02] LABS: Alanine Aminotransferase 55 U/L (16-61); Albumin 3.3 G/DL (3.4-5.0); Alkaline Phosphatase 73 U/L (45-117); Aspartate Amino Transferase 17 U/L (0-37); Band Neutrophils 1 % (0-10); Bilirubin,Total < 0.39 MG/DL (0.20-1.00); Blood Urea Nitrogen 14 MG/DL (7-18); Calcium 9.7 MG/DL (8.5-10.1); Carbon Dioxide 26 MMOL/L (21-32); Chloride 104 MMOL/L (98-107); Glucose 102 MG/DL (74-106); Lymphocytes 18 % (20-55); Osmolality,Calculated 268.2 MOS/KG (273-304); Platelet Estimate Adequate; Potassium 3.8 MMOL/L (3.5-5.1); Sodium 134 MMOL/L (136-145); Total Cells Counted 100; Total Protein 7.8 G/DL (6.4-8.2)
[2022-04-26 12:44] VITALS: BP 135/95
== END 2022-04-26 15:23 | disposition home or self-care (01) | DRG 41 ==
LOC: EDBD → EDUNIT# → N.ED 10:33 → SUATTDRO 13:00 → N.EDINP 13:00 → N.TELES 15:00
PROVIDERS: ADMIT Family Medicine; ATTEND Hospitalist

== ENCOUNTER 2022-08-07 10:07 | Inpatient (IN) ==
[2022-08-07 11:37] LABS: Basophils % 0.2 % (0.0-0.8); Eosinophils % 0.3 % (0.00-10.9); Hematocrit 30.4 VOL% (42.0-52.0); Hemoglobin 9.9 GM/DL (14.0-18.0); Immature Granulocytes Absolute 0.06 #; Lymphocytes # 0.8 10*3/uL (1.4-4.0); Lymphocytes % 12.7 % (21.2-54.2); Mean Corpuscular HGB Conc 32.6 GM/DL (32-36); Mean Corpuscular Volume 92.7 FL (87-102); Mean Platelet Volume 8.9 FL (9.6-12.0); Monocytes # 0.3 10*3/uL (0.11-0.8); NRBC # 0.02 10*3/uL; Neutrophils % 80.8 % (38.7-73.9); Platelet Count 160 T/CUMM (130-400); Red Blood Count 3.28 MC/CUMM (3.8-5.5); Red Cell Distribution Width 18.3 % (9.3-17.3)
[2022-08-07 11:56] LABS: Albumin 2.3 G/DL (3.4-5.0); Bilirubin,Total 0.6 MG/DL (0.20-1.00); Calcium 8.9 MG/DL (8.5-10.1); Osmolality,Calculated 276.4 MOS/KG (273-304); Potassium 3.5 MMOL/L (3.5-5.1)
[2022-08-07 11:59] LABS: Band Neutrophils 2 % (0-10); Lymphocytes 9 % (20-55); Total Cells Counted 100
[2022-08-07 12:00] LABS: Polychromasia Slight
[2022-08-07 12:01] LABS: Anisocytosis Slight; Ovalocytes Slight
[2022-08-07 12:06] LABS: Platelet Estimate Normal
[2022-08-07] MEDS ORDERED: ONDANSETRON 4 MG/2 ML VIAL IV PRN (14:19)
[2022-08-07] MEDS ORDERED: ZALEPLON 5 MG CAPSULE PO PRN (14:19)
[2022-08-07] MEDS ORDERED: NON-FORMULARY MEDICATION (Albuterol Sulfate [Proair Hfa] 90 MCG/PUFF HFA aerosol inhaler) INH PRN (14:45)
[2022-08-07] MEDS ORDERED: [UNRECOGNIZED DRUG - REMARK] BOTH NARES PRN (14:45)
[2022-08-07] MEDS: GABAPENTIN 100 MG CAPSULE PO SCH ×2 (17:54→21:40)
[2022-08-07] MEDS: NYSTATIN 500,000 UNIT/5 ML UDCUP SWISH/SWAL SCH ×2 (17:54→21:41)
[2022-08-07] MEDS: ENOXAPARIN 40 MG/0.4 ML SYRINGE SUBCUT SCH (17:54)
[2022-08-07] MEDS: cefTRIAXone 1,000 MG in SODIUM CHLORIDE 0.9% 100 ML IV SCH (17:55)
[2022-08-07 17:58] LABS: % Iron Saturation 13.5 % (18-50)
[2022-08-07 18:13] LABS: Folate 21.09 NG/ML (5.38-24.0)
[2022-08-07 18:39] LABS: Mucus,Urine Occasional /LPF (Occasional); RBC,Urine 1 /HPF (0-4); Squamous Epithelial Cell,Urine Occasional /HPF (0-10)
[2022-08-07 18:41] LABS: Glucose,Urine (UA) Negative (Negative); Ketones,Urine 40 mg/dL (Negative); Protein,Urine 30 mg/dL (Negative); Urine Appearance Clear (Clear); Urine Color Yellow (Yellow)
[2022-08-07 18:42] LABS: Bilirubin,Urine Negative (Negative); Blood, Urine Trace mg/dL (Negative); Nitrite,Urine Positive (Negative)
[2022-08-07] MEDS: AZITHROMYCIN INJ 500 MG in SODIUM CHLORIDE 0.9% 250 ML IV SCH (19:41)
[2022-08-07] MEDS ORDERED: DEXAMETHASONE 4 MG TABLET PO SCH (21:00)
[2022-08-07] MEDS: amLODIPine 10 MG TABLET PO SCH (21:40)
[2022-08-07] MEDS: MELOXICAM 7.5 MG TABLET PO SCH (21:40)
[2022-08-07] MEDS: DOCUSATE SODIUM 100 MG CAPSULE PO SCH (21:40)
[2022-08-07] MEDS: BUDESONIDE/FORMOTEROL 80-4.5 INHALER 6.9 GM INH SCH (21:48)
[2022-08-08 06:16] LABS: Basophils % 0.2 % (0.0-0.8); Hematocrit 31.1 VOL% (42.0-52.0); Hemoglobin 9.9 GM/DL (14.0-18.0); Immature Granulocytes Absolute 0.06 #; Lymphocytes # 0.5 10*3/uL (1.4-4.0); Lymphocytes % 8.8 % (21.2-54.2); Mean Corpuscular HGB Conc 31.8 GM/DL (32-36); Mean Corpuscular Volume 94.5 FL (87-102); Mean Platelet Volume 9.1 FL (9.6-12.0); Monocytes # 0.1 10*3/uL (0.11-0.8); Monocytes % 2.2 % (1.7-12.7); Neutrophils % 87.8 % (38.7-73.9); Platelet Count 159 T/CUMM (130-400); Red Blood Count 3.29 MC/CUMM (3.8-5.5); Red Cell Distribution Width 18.1 % (9.3-17.3)
[2022-08-08 06:38] LABS: Hypochromia Slight; Lymphocytes 11 % (20-55); Microcytosis Slight; Platelet Estimate Adequate; Total Cells Counted 100
[2022-08-08 06:44] LABS: Osmolality,Calculated 276.5 MOS/KG (273-304); Potassium 3.8 MMOL/L (3.5-5.1); Risk Ratio 2.73; Thyroid Stimulating Hormone 0.95 uIU/ml (0.358-3.74); VLDL Cholesterol 27.4 MG/DL
[2022-08-08 09:24] LABS: INR 0.9; PT Patient Result 10.3 SECS (10.1-12.1)
[2022-08-08] MEDS: MULTIVITAMIN (CENTRUM) TABLET PO SCH (10:15)
[2022-08-08] MEDS: DEXAMETHASONE 0.5 MG TABLET PO SCH ×2 (10:16→21:44)
[2022-08-08] MEDS: NYSTATIN 500,000 UNIT/5 ML UDCUP SWISH/SWAL SCH ×4 (10:16→21:45)
[2022-08-08] MEDS: PANTOPRAZOLE 40 MG TABLET PO SCH (10:16)
[2022-08-08] MEDS: DOCUSATE SODIUM 100 MG CAPSULE PO SCH ×2 (10:16→21:43)
[2022-08-08] MEDS: FERROUS SULFATE 325 MG TABLET PO SCH ×2 (10:16→21:44)
[2022-08-08] MEDS: CHOLECALCIFEROL 5,000 UNIT TABLET PO SCH (10:16)
[2022-08-08] MEDS: GABAPENTIN 100 MG CAPSULE PO SCH ×3 (10:16→21:45)
[2022-08-08] MEDS: NON-FORMULARY MEDICATION (Tiotropium Bromide [Spiriva With Handihaler] 18 MCG/CAPSULE caps INH SCH (10:25)
[2022-08-08] MEDS ORDERED: INSULIN LISPRO 100 UNIT/ML SUBCUT SCH (11:30)
[2022-08-08] MEDS: INSULIN LISPRO 100 UNIT/ML SUBCUT SCH ×3 (15:47→21:50)
[2022-08-08] MEDS: POLYETHYLENE GLYCOL POWDER 17 GM PACK PO SCH (15:54)
[2022-08-08] MEDS: ENOXAPARIN 40 MG/0.4 ML SYRINGE SUBCUT SCH (15:54)
[2022-08-08 16:11] LABS: Lymphocytes,Pleural Fluid 48 %; Monocytes,Pleural Fluid 12 %; Neutrophils,Pleural Fluid 40 %
[2022-08-08 16:21] LABS: RBC,Pleural Fluid 1 T/CUMM
[2022-08-08] MEDS ORDERED: VANCOMYCIN INJ 1,500 MG in SODIUM CHLORIDE 0.9% 500 ML IV SCH (17:00)
[2022-08-08] MEDS: cefTRIAXone 1,000 MG in SODIUM CHLORIDE 0.9% 100 ML IV SCH (17:25)
[2022-08-08] MEDS: ALBUTEROL/IPRATROPIUM 3 ML NEB RESP TX PRN (17:41)
[2022-08-08] MEDS: VANCOMYCIN INJ 1,000 MG in SODIUM CHLORIDE 0.9% 250 ML IV SCH (19:14)
[2022-08-08] MEDS: AZITHROMYCIN INJ 500 MG in SODIUM CHLORIDE 0.9% 250 ML IV SCH (21:12)
[2022-08-08] MEDS: MELOXICAM 7.5 MG TABLET PO SCH (21:44)
[2022-08-08] MEDS: amLODIPine 10 MG TABLET PO SCH (21:44)
[2022-08-08] MEDS: BUDESONIDE/FORMOTEROL 80-4.5 INHALER 6.9 GM INH SCH (22:28)
[2022-08-09] MEDS: VANCOMYCIN INJ 1,000 MG in SODIUM CHLORIDE 0.9% 250 ML IV SCH ×2 (05:22→18:40)
[2022-08-09 05:53] LABS: Basophils % 0.2 % (0.0-0.8); Hematocrit 28.2 VOL% (42.0-52.0); Hemoglobin 9.4 GM/DL (14.0-18.0); Immature Granulocytes % 1.2 %; Immature Granulocytes Absolute 0.06 #; Lymphocytes # 0.8 10*3/uL (1.4-4.0); Lymphocytes % 15.6 % (21.2-54.2); Mean Corpuscular HGB Conc 33.3 GM/DL (32-36); Mean Corpuscular Volume 92.8 FL (87-102); Mean Platelet Volume 9.1 FL (9.6-12.0); Monocytes # 0.4 10*3/uL (0.11-0.8); Monocytes % 8.6 % (1.7-12.7); NRBC # 0.02 10*3/uL; Neutrophils % 74.4 % (38.7-73.9); Platelet Count 162 T/CUMM (130-400); Red Blood Count 3.04 MC/CUMM (3.8-5.5); Red Cell Distribution Width 17.9 % (9.3-17.3); White Blood Count 4.9 T/CUMM (4-12)
[2022-08-09 06:09] LABS: Calcium 9.1 MG/DL (8.5-10.1); Osmolality,Calculated 280.3 MOS/KG (273-304); Potassium 3.6 MMOL/L (3.5-5.1)
[2022-08-09] MEDS: INSULIN LISPRO 100 UNIT/ML SUBCUT SCH ×4 (10:02→22:14)
[2022-08-09] MEDS: POLYETHYLENE GLYCOL POWDER 17 GM PACK PO SCH (10:07)
[2022-08-09] MEDS: FERROUS SULFATE 325 MG TABLET PO SCH ×2 (10:07→22:06)
[2022-08-09] MEDS: MULTIVITAMIN (CENTRUM) TABLET PO SCH (10:07)
[2022-08-09] MEDS: DOCUSATE SODIUM 100 MG CAPSULE PO SCH ×2 (10:07→22:06)
[2022-08-09] MEDS: DEXAMETHASONE 0.5 MG TABLET PO SCH ×2 (10:07→22:06)
[2022-08-09] MEDS: GABAPENTIN 100 MG CAPSULE PO SCH ×3 (10:08→22:05)
[2022-08-09] MEDS: NYSTATIN 500,000 UNIT/5 ML UDCUP SWISH/SWAL SCH ×4 (10:08→22:05)
[2022-08-09] MEDS: CHOLECALCIFEROL 5,000 UNIT TABLET PO SCH (10:08)
[2022-08-09] MEDS: PANTOPRAZOLE 40 MG TABLET PO SCH (10:08)
[2022-08-09] MEDS ORDERED: ZINC OXIDE PASTE 113 GM TUBE TOP PRN (10:26)
[2022-08-09] MEDS: ALBUTEROL/IPRATROPIUM 3 ML NEB RESP TX PRN ×2 (10:32→19:33)
[2022-08-09] MEDS: NON-FORMULARY MEDICATION (Tiotropium Bromide [Spiriva With Handihaler] 18 MCG/CAPSULE caps INH SCH (10:38)
[2022-08-09] MEDS ORDERED: POTASSIUM CHLORIDE 20 MEQ TABLET PO ONE (11:19)
[2022-08-09] MEDS: ENOXAPARIN 40 MG/0.4 ML SYRINGE SUBCUT SCH (15:25)
[2022-08-09] MEDS: ACETAMINOPHEN 325 MG TABLET PO PRN ×2 (15:26→22:06)
[2022-08-09] MEDS: cefTRIAXone 1,000 MG in SODIUM CHLORIDE 0.9% 100 ML IV SCH (17:45)
[2022-08-09] MEDS: AZITHROMYCIN INJ 500 MG in SODIUM CHLORIDE 0.9% 250 ML IV SCH (22:03)
[2022-08-09] MEDS: MELOXICAM 7.5 MG TABLET PO SCH (22:05)
[2022-08-09] MEDS: amLODIPine 10 MG TABLET PO SCH (22:05)
[2022-08-10 05:31] LABS: Basophils % 0.4 % (0.0-0.8); Eosinophils % 0.3 % (0.00-10.9); Hematocrit 31.6 VOL% (42.0-52.0); Immature Granulocytes % 1.9 %; Immature Granulocytes Absolute 0.14 #; Lymphocytes # 1.4 10*3/uL (1.4-4.0); Lymphocytes % 18.8 % (21.2-54.2); Mean Corpuscular HGB Conc 31.6 GM/DL (32-36); Mean Platelet Volume 8.9 FL (9.6-12.0); Monocytes # 0.5 10*3/uL (0.11-0.8); Monocytes % 7.3 % (1.7-12.7); NRBC # 0.15 10*3/uL; Neutrophils % 71.3 % (38.7-73.9); Platelet Count 188 T/CUMM (130-400); Red Blood Count 3.36 MC/CUMM (3.8-5.5); Red Cell Distribution Width 18.5 % (9.3-17.3); White Blood Count 7.4 T/CUMM (4-12)
[2022-08-10 05:50] LABS: Osmolality,Calculated 272.7 MOS/KG (273-304); Potassium 3.8 MMOL/L (3.5-5.1)
[2022-08-10] MEDS: BUDESONIDE/FORMOTEROL 80-4.5 INHALER 6.9 GM INH SCH (07:08)
[2022-08-10] MEDS: VANCOMYCIN INJ 1,000 MG in SODIUM CHLORIDE 0.9% 250 ML IV SCH ×2 (07:23→17:10)
[2022-08-10] MEDS: INSULIN LISPRO 100 UNIT/ML SUBCUT SCH ×4 (08:10→21:03)
[2022-08-10] MEDS: NYSTATIN 500,000 UNIT/5 ML UDCUP SWISH/SWAL SCH ×4 (08:40→21:02)
[2022-08-10] MEDS: DEXAMETHASONE 0.5 MG TABLET PO SCH ×2 (08:40→21:02)
[2022-08-10] MEDS: MULTIVITAMIN (CENTRUM) TABLET PO SCH (08:40)
[2022-08-10] MEDS: GABAPENTIN 100 MG CAPSULE PO SCH ×3 (08:41→21:02)
[2022-08-10] MEDS: DOCUSATE SODIUM 100 MG CAPSULE PO SCH ×2 (08:41→21:02)
[2022-08-10] MEDS: PANTOPRAZOLE 40 MG TABLET PO SCH (08:41)
[2022-08-10] MEDS: BISACODYL 5 MG TABLET PO PRN (08:41)
[2022-08-10] MEDS: FERROUS SULFATE 325 MG TABLET PO SCH ×2 (08:41→21:02)
[2022-08-10] MEDS: POLYETHYLENE GLYCOL POWDER 17 GM PACK PO SCH (08:45)
[2022-08-10] MEDS: CHOLECALCIFEROL 5,000 UNIT TABLET PO SCH (08:46)
[2022-08-10] MEDS: NON-FORMULARY MEDICATION (Tiotropium Bromide [Spiriva With Handihaler] 18 MCG/CAPSULE caps INH SCH (09:00)
[2022-08-10] MEDS: PIPERACILLIN/TAZOBACTAM 3,375 MG in SODIUM CHLORIDE 0.9% 100 ML IV SCH ×2 (09:06→17:09)
[2022-08-10] MEDS: ALBUTEROL/IPRATROPIUM 3 ML NEB RESP TX PRN (13:18)
[2022-08-10] MEDS: ENOXAPARIN 40 MG/0.4 ML SYRINGE SUBCUT SCH (17:08)
[2022-08-10] MEDS: hydrALAZINE 25 MG TABLET PO SCH (21:02)
[2022-08-10] MEDS: MELOXICAM 7.5 MG TABLET PO SCH (21:02)
[2022-08-10] MEDS: amLODIPine 10 MG TABLET PO SCH (21:02)
[2022-08-11] MEDS: BUDESONIDE/FORMOTEROL 80-4.5 INHALER 6.9 GM INH SCH (03:02)
[2022-08-11] MEDS: PIPERACILLIN/TAZOBACTAM 3,375 MG in SODIUM CHLORIDE 0.9% 100 ML IV SCH ×3 (04:05→18:44)
[2022-08-11 05:01] LABS: Basophils % 0.4 % (0.0-0.8); Eosinophils % 0.3 % (0.00-10.9); Hematocrit 28.9 VOL% (42.0-52.0); Hemoglobin 9.2 GM/DL (14.0-18.0); Immature Granulocytes % 2.2 %; Immature Granulocytes Absolute 0.15 #; Lymphocytes # 1.1 10*3/uL (1.4-4.0); Lymphocytes % 15.9 % (21.2-54.2); Mean Corpuscular HGB Conc 31.8 GM/DL (32-36); Mean Corpuscular Volume 95.4 FL (87-102); Mean Platelet Volume 8.8 FL (9.6-12.0); Monocytes # 0.5 10*3/uL (0.11-0.8); Monocytes % 7.4 % (1.7-12.7); NRBC # 0.34 10*3/uL; Neutrophils % 73.8 % (38.7-73.9); Platelet Count 187 T/CUMM (130-400); Red Blood Count 3.03 MC/CUMM (3.8-5.5); Red Cell Distribution Width 18.5 % (9.3-17.3); White Blood Count 6.9 T/CUMM (4-12)
[2022-08-11 05:17] LABS: Calcium 8.8 MG/DL (8.5-10.1); Osmolality,Calculated 274.5 MOS/KG (273-304); Potassium 3.5 MMOL/L (3.5-5.1)
[2022-08-11 05:20] LABS: Albumin 2.2 G/DL (3.4-5.0); Bilirubin,Total 0.4 MG/DL (0.20-1.00); Calcium 8.8 MG/DL (8.5-10.1); Osmolality,Calculated 276.4 MOS/KG (273-304); Potassium 3.6 MMOL/L (3.5-5.1)
[2022-08-11] MEDS: VANCOMYCIN INJ 1,000 MG in SODIUM CHLORIDE 0.9% 250 ML IV SCH ×2 (07:25→17:41)
[2022-08-11] MEDS: INSULIN LISPRO 100 UNIT/ML SUBCUT SCH ×4 (07:45→21:37)
[2022-08-11] MEDS: POLYETHYLENE GLYCOL POWDER 17 GM PACK PO SCH (10:00)
[2022-08-11] MEDS: GABAPENTIN 100 MG CAPSULE PO SCH ×3 (10:01→21:38)
[2022-08-11] MEDS: DEXAMETHASONE 0.5 MG TABLET PO SCH ×2 (10:01→21:38)
[2022-08-11] MEDS: hydrALAZINE 25 MG TABLET PO SCH ×2 (10:01→21:38)
[2022-08-11] MEDS: CHOLECALCIFEROL 5,000 UNIT TABLET PO SCH (10:02)
[2022-08-11] MEDS: BISACODYL 5 MG TABLET PO PRN (10:02)
[2022-08-11] MEDS: PANTOPRAZOLE 40 MG TABLET PO SCH (10:02)
[2022-08-11] MEDS: FERROUS SULFATE 325 MG TABLET PO SCH ×2 (10:02→21:38)
[2022-08-11] MEDS: DOCUSATE SODIUM 100 MG CAPSULE PO SCH ×2 (10:02→21:38)
[2022-08-11] MEDS: MULTIVITAMIN (CENTRUM) TABLET PO SCH (10:02)
[2022-08-11] MEDS: NYSTATIN 500,000 UNIT/5 ML UDCUP SWISH/SWAL SCH ×4 (10:02→21:38)
[2022-08-11] MEDS: NON-FORMULARY MEDICATION (Tiotropium Bromide [Spiriva With Handihaler] 18 MCG/CAPSULE caps INH SCH (10:03)
[2022-08-11] MEDS ORDERED: POTASSIUM CHLORIDE 20 MEQ TABLET PO ONE (11:10)
[2022-08-11] MEDS: ENOXAPARIN 40 MG/0.4 ML SYRINGE SUBCUT SCH (14:56)
[2022-08-11] MEDS ORDERED: BISACODYL 5 MG TABLET PO PRN (15:20)
[2022-08-11] MEDS: MELOXICAM 7.5 MG TABLET PO SCH (21:38)
[2022-08-11] MEDS: amLODIPine 10 MG TABLET PO SCH (21:38)
[2022-08-12] MEDS: PIPERACILLIN/TAZOBACTAM 3,375 MG in SODIUM CHLORIDE 0.9% 100 ML IV SCH ×2 (04:00→13:42)
[2022-08-12] MEDS: BUDESONIDE/FORMOTEROL 80-4.5 INHALER 6.9 GM INH SCH ×2 (04:18→21:40)
[2022-08-12] MEDS: VANCOMYCIN INJ 1,000 MG in SODIUM CHLORIDE 0.9% 250 ML IV SCH ×2 (05:43→18:37)
[2022-08-12] MEDS: ACETAMINOPHEN 325 MG TABLET PO PRN (05:51)
[2022-08-12 06:32] LABS: Albumin 2.2 G/DL (3.4-5.0); Bilirubin,Total 0.5 MG/DL (0.20-1.00); Calcium 9.3 MG/DL (8.5-10.1); Osmolality,Calculated 280.1 MOS/KG (273-304); Potassium 3.7 MMOL/L (3.5-5.1); Total Protein 6.3 G/DL (6.4-8.2)
[2022-08-12 08:00] LABS: Basophils % 0.3 % (0.0-0.8); Eosinophils % 0.2 % (0.00-10.9); Hematocrit 30.3 VOL% (42.0-52.0); Hemoglobin 9.4 GM/DL (14.0-18.0); Immature Granulocytes % 3.2 %; Immature Granulocytes Absolute 0.28 #; Lymphocytes # 1.6 10*3/uL (1.4-4.0); Lymphocytes % 17.6 % (21.2-54.2); Mean Corpuscular Volume 96.8 FL (87-102); Mean Platelet Volume 9.3 FL (9.6-12.0); Monocytes # 0.6 10*3/uL (0.11-0.8); Monocytes % 6.4 % (1.7-12.7); NRBC # 0.23 10*3/uL; Neutrophils % 72.3 % (38.7-73.9); Platelet Count 233 T/CUMM (130-400); Red Blood Count 3.13 MC/CUMM (3.8-5.5); Red Cell Distribution Width 19.5 % (9.3-17.3); White Blood Count 8.9 T/CUMM (4-12)
[2022-08-12] MEDS: INSULIN LISPRO 100 UNIT/ML SUBCUT SCH ×4 (08:28→21:40)
[2022-08-12] MEDS: DEXAMETHASONE 0.5 MG TABLET PO SCH ×2 (09:57→21:40)
[2022-08-12] MEDS: POLYETHYLENE GLYCOL POWDER 17 GM PACK PO SCH (09:57)
[2022-08-12] MEDS: DOCUSATE SODIUM 100 MG CAPSULE PO SCH ×2 (09:57→21:40)
[2022-08-12] MEDS: FERROUS SULFATE 325 MG TABLET PO SCH ×2 (09:57→21:40)
[2022-08-12] MEDS: NYSTATIN 500,000 UNIT/5 ML UDCUP SWISH/SWAL SCH ×4 (09:57→21:40)
[2022-08-12] MEDS: PANTOPRAZOLE 40 MG TABLET PO SCH (09:57)
[2022-08-12] MEDS: BISACODYL 5 MG TABLET PO PRN (09:57)
[2022-08-12] MEDS: hydrALAZINE 25 MG TABLET PO SCH ×2 (09:58→21:40)
[2022-08-12] MEDS: GABAPENTIN 100 MG CAPSULE PO SCH ×3 (09:58→21:40)
[2022-08-12] MEDS: MULTIVITAMIN (CENTRUM) TABLET PO SCH (09:58)
[2022-08-12] MEDS: CHOLECALCIFEROL 5,000 UNIT TABLET PO SCH (09:59)
[2022-08-12] MEDS: NON-FORMULARY MEDICATION (Tiotropium Bromide [Spiriva With Handihaler] 18 MCG/CAPSULE caps INH SCH (10:00)
[2022-08-12] MEDS: ENOXAPARIN 40 MG/0.4 ML SYRINGE SUBCUT SCH (15:23)
[2022-08-12] MEDS: MELOXICAM 7.5 MG TABLET PO SCH (21:39)
[2022-08-12] MEDS: amLODIPine 10 MG TABLET PO SCH (21:40)
[2022-08-13] MEDS: VANCOMYCIN INJ 1,000 MG in SODIUM CHLORIDE 0.9% 250 ML IV SCH ×2 (05:42→17:32)
[2022-08-13 05:51] LABS: Basophils % 0.4 % (0.0-0.8); Eosinophils % 0.3 % (0.00-10.9); Hematocrit 28.9 VOL% (42.0-52.0); Hemoglobin 8.8 GM/DL (14.0-18.0); Immature Granulocytes % 3.9 %; Immature Granulocytes Absolute 0.27 #; Lymphocytes # 1.1 10*3/uL (1.4-4.0); Lymphocytes % 15.9 % (21.2-54.2); Mean Corpuscular HGB Conc 30.4 GM/DL (32-36); Mean Corpuscular Volume 98.6 FL (87-102); Monocytes # 0.5 10*3/uL (0.11-0.8); Monocytes % 6.5 % (1.7-12.7); NRBC # 0.13 10*3/uL; Platelet Count 245 T/CUMM (130-400); Red Blood Count 2.93 MC/CUMM (3.8-5.5); Red Cell Distribution Width 19.7 % (9.3-17.3); White Blood Count 6.9 T/CUMM (4-12)
[2022-08-13 06:15] LABS: Albumin 2.1 G/DL (3.4-5.0); Bilirubin,Total 0.4 MG/DL (0.20-1.00); Calcium 9.4 MG/DL (8.5-10.1); Osmolality,Calculated 288.7 MOS/KG (273-304); Potassium 3.9 MMOL/L (3.5-5.1)
[2022-08-13] MEDS: INSULIN LISPRO 100 UNIT/ML SUBCUT SCH ×4 (08:39→20:19)
[2022-08-13] MEDS: DOCUSATE SODIUM 100 MG CAPSULE PO SCH ×2 (09:10→21:55)
[2022-08-13] MEDS: PANTOPRAZOLE 40 MG TABLET PO SCH (09:10)
[2022-08-13] MEDS: NYSTATIN 500,000 UNIT/5 ML UDCUP SWISH/SWAL SCH ×4 (09:10→21:55)
[2022-08-13] MEDS: MULTIVITAMIN (CENTRUM) TABLET PO SCH (09:10)
[2022-08-13] MEDS: hydrALAZINE 25 MG TABLET PO SCH ×2 (09:10→21:55)
[2022-08-13] MEDS: GABAPENTIN 100 MG CAPSULE PO SCH ×3 (09:11→21:56)
[2022-08-13] MEDS: FERROUS SULFATE 325 MG TABLET PO SCH ×2 (09:11→21:55)
[2022-08-13] MEDS: POLYETHYLENE GLYCOL POWDER 17 GM PACK PO SCH (09:11)
[2022-08-13] MEDS: DEXAMETHASONE 0.5 MG TABLET PO SCH ×2 (09:11→21:55)
[2022-08-13] MEDS: CHOLECALCIFEROL 5,000 UNIT TABLET PO SCH (09:11)
[2022-08-13] MEDS: NON-FORMULARY MEDICATION (Tiotropium Bromide [Spiriva With Handihaler] 18 MCG/CAPSULE caps INH SCH (09:12)
[2022-08-13] MEDS: ENOXAPARIN 40 MG/0.4 ML SYRINGE SUBCUT SCH (16:50)
[2022-08-13] MEDS: MELOXICAM 7.5 MG TABLET PO SCH (21:55)
[2022-08-13] MEDS: amLODIPine 10 MG TABLET PO SCH (21:55)
[2022-08-14] MEDS: BUDESONIDE/FORMOTEROL 80-4.5 INHALER 6.9 GM INH SCH ×2 (00:51→22:53)
[2022-08-14 04:19] LABS: Basophils % 0.3 % (0.0-0.8); Eosinophils % 0.5 % (0.00-10.9); Hematocrit 28.1 VOL% (42.0-52.0); Hemoglobin 8.4 GM/DL (14.0-18.0); Immature Granulocytes % 3.8 %; Immature Granulocytes Absolute 0.23 #; Lymphocytes # 1.2 10*3/uL (1.4-4.0); Lymphocytes % 19.8 % (21.2-54.2); Mean Corpuscular HGB Conc 29.9 GM/DL (32-36); Mean Corpuscular Volume 98.9 FL (87-102); Mean Platelet Volume 8.9 FL (9.6-12.0); Monocytes # 0.4 10*3/uL (0.11-0.8); Monocytes % 7.2 % (1.7-12.7); NRBC # 0.07 10*3/uL; Neutrophils % 68.4 % (38.7-73.9); Platelet Count 237 T/CUMM (130-400); Red Blood Count 2.84 MC/CUMM (3.8-5.5); Red Cell Distribution Width 19.7 % (9.3-17.3); White Blood Count 6.1 T/CUMM (4-12)
[2022-08-14 05:28] LABS: Alanine Aminotransferase 50 U/L (16-61); Albumin 1.9 G/DL (3.4-5.0); Alkaline Phosphatase 68 U/L (45-117); Aspartate Amino Transferase 26 U/L (0-37); Bilirubin,Total < 0.39 MG/DL (0.20-1.00); Blood Urea Nitrogen 9 MG/DL (7-18); Calcium 9.2 MG/DL (8.5-10.1); Carbon Dioxide 27 MMOL/L (21-32); Chloride 112 MMOL/L (98-107); Glucose 97 MG/DL (74-106); Osmolality,Calculated 290.4 MOS/KG (273-304); Potassium 3.6 MMOL/L (3.5-5.1); Sodium 147 MMOL/L (136-145); Total Protein 5.8 G/DL (6.4-8.2)
[2022-08-14] MEDS: VANCOMYCIN INJ 1,000 MG in SODIUM CHLORIDE 0.9% 250 ML IV SCH ×2 (06:38→17:24)
[2022-08-14] MEDS: INSULIN LISPRO 100 UNIT/ML SUBCUT SCH ×4 (09:24→21:34)
[2022-08-14] MEDS: POLYETHYLENE GLYCOL POWDER 17 GM PACK PO SCH (09:28)
[2022-08-14] MEDS: NYSTATIN 500,000 UNIT/5 ML UDCUP SWISH/SWAL SCH ×4 (09:28→21:32)
[2022-08-14] MEDS: hydrALAZINE 25 MG TABLET PO SCH (09:28)
[2022-08-14] MEDS: GABAPENTIN 100 MG CAPSULE PO SCH ×3 (09:28→21:32)
[2022-08-14] MEDS: MULTIVITAMIN (CENTRUM) TABLET PO SCH (09:28)
[2022-08-14] MEDS: PANTOPRAZOLE 40 MG TABLET PO SCH (09:28)
[2022-08-14] MEDS: DEXAMETHASONE 0.5 MG TABLET PO SCH ×2 (09:29→21:32)
[2022-08-14] MEDS: CHOLECALCIFEROL 5,000 UNIT TABLET PO SCH (09:29)
[2022-08-14] MEDS: FERROUS SULFATE 325 MG TABLET PO SCH ×2 (09:29→21:35)
[2022-08-14] MEDS: DOCUSATE SODIUM 100 MG CAPSULE PO SCH ×2 (09:29→21:32)
[2022-08-14] MEDS: NON-FORMULARY MEDICATION (Tiotropium Bromide [Spiriva With Handihaler] 18 MCG/CAPSULE caps INH SCH (09:30)
[2022-08-14] MEDS: ENOXAPARIN 40 MG/0.4 ML SYRINGE SUBCUT SCH (14:56)
[2022-08-14] MEDS: ALBUTEROL/IPRATROPIUM 3 ML NEB RESP TX PRN (17:32)
[2022-08-14] MEDS: amLODIPine 10 MG TABLET PO SCH (21:32)
[2022-08-14] MEDS: MELOXICAM 7.5 MG TABLET PO SCH (21:34)
[2022-08-15] MEDS: VANCOMYCIN INJ 1,000 MG in SODIUM CHLORIDE 0.9% 250 ML IV SCH ×2 (05:47→17:54)
[2022-08-15 06:18] LABS: Basophils % 0.3 % (0.0-0.8); Eosinophils % 0.3 % (0.00-10.9); Hematocrit 28.6 VOL% (42.0-52.0); Immature Granulocytes % 2.9 %; Immature Granulocytes Absolute 0.18 #; Lymphocytes # 1.3 10*3/uL (1.4-4.0); Lymphocytes % 20.6 % (21.2-54.2); Mean Corpuscular HGB Conc 31.5 GM/DL (32-36); Mean Corpuscular Volume 96.9 FL (87-102); Mean Platelet Volume 8.9 FL (9.6-12.0); Monocytes # 0.4 10*3/uL (0.11-0.8); Monocytes % 6.1 % (1.7-12.7); NRBC # 0.06 10*3/uL; Neutrophils % 69.8 % (38.7-73.9); Platelet Count 259 T/CUMM (130-400); Red Blood Count 2.95 MC/CUMM (3.8-5.5); Red Cell Distribution Width 19.4 % (9.3-17.3); White Blood Count 6.3 T/CUMM (4-12)
[2022-08-15 06:32] LABS: Alanine Aminotransferase 51 U/L (16-61); Albumin 2.2 G/DL (3.4-5.0); Alkaline Phosphatase 73 U/L (45-117); Aspartate Amino Transferase 25 U/L (0-37); Bilirubin,Total < 0.39 MG/DL (0.20-1.00); Blood Urea Nitrogen 9 MG/DL (7-18); Calcium 9.7 MG/DL (8.5-10.1); Carbon Dioxide 30 MMOL/L (21-32); Chloride 107 MMOL/L (98-107); Glucose 94 MG/DL (74-106); Osmolality,Calculated 284.8 MOS/KG (273-304); Potassium 3.4 MMOL/L (3.5-5.1); Sodium 144 MMOL/L (136-145); Total Protein 6.1 G/DL (6.4-8.2)
[2022-08-15] MEDS: INSULIN LISPRO 100 UNIT/ML SUBCUT SCH ×3 (08:38→16:32)
[2022-08-15] MEDS: POLYETHYLENE GLYCOL POWDER 17 GM PACK PO SCH (10:13)
[2022-08-15] MEDS: DOCUSATE SODIUM 100 MG CAPSULE PO SCH (10:13)
[2022-08-15] MEDS: MULTIVITAMIN (CENTRUM) TABLET PO SCH (10:14)
[2022-08-15] MEDS: CHOLECALCIFEROL 5,000 UNIT TABLET PO SCH (10:14)
[2022-08-15] MEDS: GABAPENTIN 100 MG CAPSULE PO SCH ×2 (10:14→15:44)
[2022-08-15] MEDS: FERROUS SULFATE 325 MG TABLET PO SCH (10:14)
[2022-08-15] MEDS: PANTOPRAZOLE 40 MG TABLET PO SCH (10:14)
[2022-08-15] MEDS: DEXAMETHASONE 0.5 MG TABLET PO SCH (10:14)
[2022-08-15] MEDS: NON-FORMULARY MEDICATION (Tiotropium Bromide [Spiriva With Handihaler] 18 MCG/CAPSULE caps INH SCH (10:15)
[2022-08-15 13:47] VITALS: BP 118/82
[2022-08-15] MEDS: ENOXAPARIN 40 MG/0.4 ML SYRINGE SUBCUT SCH (14:03)
== END 2022-08-15 19:15 | disposition home health service (06) | DRG 543 ==
LOC: N.ED 10:07 → N.EDINP 10:07 → SUATTDRO 14:19 → N.TELES 15:24
PROVIDERS: ADMIT Internal Medicine; ATTEND Internal Medicine Geriatric Medicine